=== PATIENT | male | born 1940 | race Caucasian/White ===

== ENCOUNTER → 2023-03-13 09:59 | Outpatient (CLI) | payer MEDICARE, SELFPAY ==
[2023-03-13 11:19] LABS: BUN Creatinine Ratio 15.9 (6-22); Blood Urea Nitrogen 25 mg/dL (9-20); Calcium 9.4 mg/dL (8.4-10.2); Carbon Dioxide 25 mmol/L (22-32); Chloride 104 mmol/L (98-107); Estimated Glomerular Filt Rate 43 mL/min (>60); Glucose 95 mg/dL (80-110); HEMOLYSIS < 15 (0-50); Sodium 138 mmol/L (137-145)
== END ==
PROVIDERS: PCP Internal Medicine; Referring Provider Internal Medicine; Visit Provider Internal Medicine
DX: I50.9 Heart failure, unspecified (principal)
CPT/HCPCS: 36415; 80048

== ENCOUNTER → 2023-04-27 09:01 | Outpatient (CLI) | payer MEDICARE, SELFPAY ==
--- NOTE | 2023-04-27 09:02 | DI.RAD.S_ITS ---
PROCEDURE: XR THORACIC SPINE 3V INDICATIONS: RIB PAIN TECHNIQUE: 3 views of the thoracic spine were acquired. COMPARISON: None. FINDINGS: Bones: No fractures or dislocations. No suspicious bony lesions. 12 pairs of ribs are noted, and appear intact where visualized. Soft tissues: No paravertebral stripe thickening. Atherosclerotic vascular calcification noted in the aortic arch. IMPRESSION: Unremarkable thoracic spine radiographs Approved by: Adán Maki M.D. on 04/27/2023 at 9:33
--- NOTE | 2023-04-27 09:02 | DI.RAD.S_ITS ---
PROCEDURE: XR LUMBAR SPINE MIN 4V INDICATIONS: BACK PAIN TECHNIQUE: 5 views of the lumbar spine were acquired, including bilateral oblique views. COMPARISON: None. FINDINGS: Bones: 5 nonrib-bearing vertebrae are present. There is normal bony alignment. No vertebral body compression fractures. No suspicious bony lesions. Disc space narrowing and hypertrophic facet joints present throughout the exam particularly lower lumbar spine. Mild thoracolumbar convex left scoliosis Soft tissues: Overlying bowel gas pattern is normal. No suspicious soft tissue calcifications. Atherosclerotic calcification in the abdominal aorta noted without evidence of aneurysm. Oblique images: No pars defects. IMPRESSION: Multilevel degenerative disc disease and arthropathy, particularly lower lumbar spine. Degenerative thoracolumbar levoscoliosis Approved by: Adán Maki M.D. on 04/27/2023 at 9:46
== END ==
PROVIDERS: PCP Internal Medicine; Referring Provider Physical Medicine & Rehabilitation; Visit Provider Physical Medicine & Rehabilitation
DX: R07.81 Pleurodynia (principal); M51.36 Other intervertebral disc degeneration, lumbar region; M47.816 Spondylosis without myelopathy or radiculopathy, lumbar region; M48.062 Spinal stenosis, lumbar region with neurogenic claudication; S32.050S Wedge compression fracture of fifth lumbar vertebra, sequela; M41.9 Scoliosis, unspecified; M54.9 Dorsalgia, unspecified
CPT/HCPCS: 72072; 72110; 99214

== ENCOUNTER 2023-05-15 10:16 | Outpatient (CLI) | payer MEDICARE, SELFPAY ==
[2023-05-15] VITALS (8 sets, daily range): BP systolic 121–138; BP diastolic 60–75; PULSE 71–85; RESP 15–17; TEMP 36.3; O2SAT 95–99
--- NOTE | 2023-05-15 10:20 | DI.RAD.S_ITS ---
PROCEDURE: PAIN L INTERLAMINAR/CAUDAL INJ INDICATIONS: SPONDYLOSIS COMPARISON: [facility], CR, XR LUMBAR SPINE MIN 4V, 04/27/2023, 9:08. FINDINGS: Fluoroscopic spot filming was performed to verify placement of a spinal needle at the L4-L5 level, as labeled on the films. Appropriate location of the needle tip was confirmed by injection of iodinated contrast. IMPRESSION: Intraprocedural examination within normal limits. Dictated by: Drew Kirby M.D. on 05/15/2023 at 12:06 Approved by: Drew Kirby M.D. on 05/15/2023 at 12:06
[2023-05-15] MEDS: MIDAZOLAM 2 MG/2 ML VIAL IV (11:08)
[2023-05-15] MEDS: BETAMETHASONE 30 MG/5 ML MDV 6 MG INJ (11:10)
[2023-05-15] MEDS: DEXAMETHASONE 10 MG/ML VIAL INJ (11:10)
[2023-05-15] MEDS: BUPIVACAINE 0.25% (PF) VIAL 2 ML INJ (11:10)
[2023-05-15] MEDS: iopamidoL 15 ML VIAL 3 ML INJ (11:10)
--- NOTE | 2023-05-15 11:28 | P.PCN_ITS ---
Date/Time/Diagnoses Date of procedure: 05/15/23 Time of procedure: 11:28 Pre-procedure diagnosis: 1. HNP WITH RADICULAR FEATURES, 2. MULTILEVEL CENTRAL STENOSIS, Post-procedure diagnosis: same Procedure Notes Procedure: 1. FLUOROSCOPICALLY GUIDED CONTRAST CONTROLLED INTERLAMINAR EPIDURAL STEROID INJECTION - L5/S1 Indications: Meir is referred by Dr. Briones for treatment of Bilateral Foraminal Stenosis L>R LE symptoms. Physician: Crow Jennings Total Fluoroscopy time (seconds): 5 Total sedation minutes: 7 Complications: none Procedure in detail & Post-procedure care: FINDINGS Multilevel Central Spinal Stenosis with Nerve Root Compression DESCRIPTION OF PROCEDURE Fluoroscopically guided, contrast-controlled L5/S1 translaminar epidural steroid injection. Following review of allergy and review of potential side effects and complications, including, but not necessarily limited to, infection, allergic reaction, local tissue breakdown, temporary as well as permanent nerve injury, paralysis, stroke and possible , the patient indicated that the patient understood and agreed to proceed. An informed consent document was signed by the patient, witnessed by a nurse, and placed in the patient's chart. Additionally, other treatment options including modalities, medications, and physical therapy were reviewed with the patient. After review of previous anaesthesic history and IV conscious sedation the patient was deemed safe to proceed with today?s procedure with IV conscious sedation as ASA class II designation. Safety time-out was performed to confirm patient ID, procedure to be performed and site of procedure. IV sedation was accomplished with a combination of 1mg of Versed administered by the RN after DO order, titrated to patient comfort during the course of the procedure while the patient remained responsive to all verbal commands. In the prone position, following sterile prep and drape of the lumbar region, the L5/S1 translaminar space was identified fluoroscopically. The skin was anesthetized via a 25-gauge, 1.5-inch needle with 1% lidocaine solution. At this point, a 22-gauge short bevel spinal needle was atraumatically introduced and advanced under fluoroscopic guidance into the region of the L5/S1 translaminar space. Depth was confirmed on lateral view. Radiological data, including multiple fluoroscopic views of the lumbar spine, reveal a spinal needle at the L5/S1 translaminar space. Lateral views then show placement of the needle in the epidural space. Subsequent views show contrast material flowing superiorly and inferiorly in the epidural space. No vascular or intrathecal uptake is observed. At this point, using loss of resistance technique with saline and air, the epidural space was entered. This was confirmed following negative aspiration with injection of approximately 1.5cc of Isovue 200, showing excellent epidural flow without vascular or intrathecal uptake. At this point, 1 cc of 1% lidocai ne solution combined with 2cc or 10mg of dexamethasone and 6mg of betamethasone was injected without incident. The patent tolerated the procedure without signs of symptoms of complications prior to transfer to the recovery area for further monitoring. The patient was then transferred to the recovery area where they were observed for an appropriate period of time after the injection. The patient reported a VAS score of 6 prior to the procedure and a post-procedure VAS of 0. POST OP INSTRUCTIONS The patient was provided a Pain Log to continue to record their response to the target-specific procedure prior to follow-up visit with their referring physician. Additionally, specific post-injection care instructions and a contact number to our office were provided if concerns arise regarding possible complications associated with the procedure are suspected.
== END 2023-05-15 11:42 | disposition home or self-care (01) ==
PROVIDERS: PCP Internal Medicine; Referring Provider Physical Medicine & Rehabilitation; Visit Provider Physical Medicine & Rehabilitation
DX: M51.17 Intervertebral disc disorders with radiculopathy, lumbosacral region (principal); M48.07 Spinal stenosis, lumbosacral region
CPT/HCPCS: 62323; J0702; J1100; J2250; J3490

== ENCOUNTER 2023-05-28 13:53 | Emergency (ER) | payer MEDICARE, SELFPAY ==
[2023-05-28] VITALS (7 sets, daily range): BP systolic 102–128; BP diastolic 57–60; PULSE 67–81; RESP 15–19; TEMP 36.5; O2SAT 93–98; BMI 21.8
[2023-05-28] MEDS: ONDANSETRON 4 MG/2 ML INJ IV (14:23)
[2023-05-28 14:39] LABS: Add Manual Diff / Slide Review NO; Basophils Absolute Auto 0 /uL (0-100); Basophils Percent Auto 0.3 % (0-2); Eosinophils Absolute Auto 0 /uL (0-450); Eosinophils Percent Auto 0.5 % (2-4); Hematocrit 43.7 % (41-53); Hemoglobin 14.8 g/dL (13.5-17.5); Lymphocytes Absolute Auto 1200 /uL (1100-4500); Lymphocytes Percent Auto 22.1 % (25-40); Mean Corpuscular HGB Conc 33.8 % (30-36); Mean Corpuscular Hemoglobin 31.5 PG (26-34); Mean Corpuscular Volume 93.2 fL (80-100); Monocytes Absolute Auto 1000 /uL (0-900); Monocytes Percent Auto 18.8 % (3-14); Neutrophils Absolute Auto 3100 /uL (1500-7000); Neutrophils Percent Auto 58.3 % (50-75); Platelet Count 208 X10^3/uL (150-400); Red Blood Cell Count 4.69 X10^6/uL (4.5-5.9); Red Cell Distribution Width 13.6 % (11.6-14.8); White Blood Cell Count 5.4 X10^3/uL (4.5-11.0)
[2023-05-28 14:52] LABS: COVID19 -Nasal RAPID Negative (Negative)
[2023-05-28 15:02] LABS: Alanine Aminotransferase 21 IU/L (<50); Albumin 3.5 g/dL (3.5-5.0); Albumin Globulin Ratio 1.2 (1.0-2.8); Alkaline Phosphatase 73 U/L (38-126); Aspartate Aminotransferase 20 IU/L (17-59); Bilirubin Total 0.4 mg/dL (0.2-1.3); Blood Urea Nitrogen 31 mg/dL (9-20); Calcium 8.5 mg/dL (8.4-10.2); Carbon Dioxide 20 mmol/L (22-32); Chloride 107 mmol/L (98-107); Creatine Kinase 49 U/L (55-170); Estimated Glomerular Filt Rate 51 mL/min (>60); Glucose 230 mg/dL (80-110); HEMOLYSIS 17 (0-50); Lipase 32 U/L (23-300); Potassium 3.8 mmol/L (3.4-5.1); Sodium 136 mmol/L (137-145); Total Protein 6.5 g/dL (6.3-8.2)
[2023-05-28 15:13] LABS: Troponin I 0.018 ng/mL (0.01-0.034)
[2023-05-28] MEDS: SODIUM CHLORIDE 0.9% 1,000 ML 1000 ML IV (17:41)
--- NOTE | 2023-05-28 18:55 | ED_ITS ---
HPI - Nausea/Vomiting/Diarrhea General Chief complaint: Nausea/Vomiting/Diarrhea Stated complaint: states sick/D/V Time Seen by Provider: 05/28/23 18:05 Source: patient Mode of arrival: Ambulatory History of Present Illness HPI Narrative: 83-year-old gentleman with diabetes, hypertension, history of bladder cancer, COPD, chronic kidney disease who notes that he had a flu shot on the . On the he began having diarrhea which continued for 48 hours and resolved after a dose of Imodium. He then began having vomiting which was continued for 48 hours any comes in for further evaluation. He does not describe fevers. He describes abdominal cramping associated with the diarrhea but no specific abdominal pain otherwise. He has not had any dysuria or flank pain. No chest pain palpitations or dyspnea. There has been no blood in either the stool or emesis. Related Data Home Medications Medication Instructions Recorded Confirmed CALCIUM CARBONATE/VITAMIN D3 250 mg PO BID ##0 07/30/08 04/27/23 (Oyster Shell Calcium-Vit D Tab) FUROSEMIDE (Lasix) 20 mg PO ##0 07/30/08 04/27/23 Fluoxetine Hydrochloride (Prozac) 40 mg PO ##0 07/30/08 04/27/23 INSULIN HUMAN 70/30 10ML (Humulin 0 units SQ * [place] DOSE/FREQUENCY ##0 07/30/08 04/27/23 70-30 Vial) LISINOPRIL (Zestril / Prinivil) 20 mg PO Q DAY ##0 11/20/08 04/27/23 omeprazole 20 mg capsule,delayed 20 mg PO QDAY ##0 01/20/13 04/27/23 release Previous Rx's Medication Instructions Recorded diazepam 10 mg tablet (Valium) 10 mg PO .COMPLEX PRN 1-2 prior to 04/27/23 MRI and for possible steroid flare #10 tabs ondansetron 4 mg disintegrating 4 mg PO Q8H PRN nausea and 05/28/23 tablet vomiting #14 tabs Allergies Allergy/AdvReac Type Severity Reaction Status Date / Time carvedilol [CARVEDILOL] Allergy Unknown Verified 05/28/23 14:14 metformin [METFORMIN] Allergy Unknown Verified 05/28/23 14:14 Review of Systems Review of Systems Narrative: Pertinent positive and negative findings as per HPI Patient History Medical History Compression fracture of L5 vertebra Lumbar stenosis with neurogenic claudication Facet arthropathy, lumbar Scoliosis Surgical History History of prostate surgery Family History Father History of heart attack Family/Other Diabetes mellitus Social History Smoking Status: Never smoker Smoking Status: Never smoker alcohol intake frequency: 0-2 drinks per day Substance Use Type: does not use Exam Initial Vital Signs Initial Vital Signs: Vital Signs Temperature 97.7 F 05/28/23 14:09 Pulse Rate 76 05/28/23 14:09 Respiratory Rate 18 05/28/23 14:09 Blood Pressure 102/57 L 05/28/23 14:09 Pulse Oximetry 98 05/28/23 14:09 Oxygen Delivery Method Room Air 05/28/23 14:09 General: Older-appearing gentleman in no acute distress. Able to give a complete and coherent history. Well-nourished well-developed HEENT: Moist mucous membranes, normal sclera with reactive pupils, Respiratory: Lungs are clear to auscultation, no wheezing no rales no rhonchi. Full and symmetrical air movement Cardiac: Regular rate and rhythm no murmurs no bruits Abdomen: Soft, nontender, no rebound or guarding, not a surgical abdomen. No flank pain. Skin: Thin but otherwise Warm and dry, no rashes Neurologic: Grossly neurologically intact with no obvious asymmetries or abnormalities Extremities: No trauma, well perfused Psych: Cooperative, appropriate insight and affect Course Orders Ordered: ED Orders 05/28/23 14:14 EKG-12 Lead Stat 05/28/23 14:26 COVID19 -Nasal RAPID Stat Complete Blood Count AUTO DIFF Stat Comprehensive Metabolic Panel Stat Lipase Stat Troponin & CK Cardiac Panel Stat Ondansetron HCl (Ondansetron 4 Mg/2 Ml Inj) 4 mg IV NOW PRN PRN Reason: Nausea And Vomiting Last Admin: 05/28/23 14:23 Dose: 4 mg Documented By: JG Discontinued Medications Sodium Chloride (Normal Saline 0.9%) 1,000 mls @ 1,000 mls/hr IV BOLUS ONE Stop: 05/28/23 18:21 Last Admin: 05/28/23 17:41 Dose: 1,000 mls/hr Documented By: TEZ Vital Signs Vital signs: Vital Signs - 8 hr 05/28/23 14:09 05/28/23 17:39 05/28/23 17:40 Temperature 97.7 F Pulse Rate 76 81 Respiratory Rate 18 Blood Pressure 102/57 L 128/60 Pulse Oximetry 98 96 Oxygen Delivery Method Room Air 05/28/23 17:40 05/28/23 18:00 Temperature Pulse Rate 75 67 Respiratory Rate 15 15 Blood Pressure Pulse Oximetry 98 95 Oxygen Delivery Method MDM - Nausea/Vomiting/Diarrhea Lab Data 05/28/23 14:26 05/28/23 14:26 Labs: Lab Results 05/28/23 Range/Units 14:26 WBC 5.4 (4.5-11.0) X10^3/uL RBC 4.69 (4.5-5.9) X10^6/uL Hgb 14.8 (13.5-17.5) g/dL Hct 43.7 (41-53) % MCV 93.2 (80-100) fL MCH 31.5 (26-34) PG MCHC 33.8 (30-36) % RDW 13.6 (11.6-14.8) % Plt Count 208 (150-400) X10^3/uL Neut % (Auto) 58.3 (50-75) % Lymph % (Auto) 22.1 L (25-40) % [place] % (Auto) 18.8 H (3-14) % Eos % (Auto) 0.5 L (2-4) % Baso % (Auto) 0.3 (0-2) % Neut # (Auto) 3100 (3176-4763) /uL Lymph # (Auto) 1200 (4752-4975) /uL [place] # (Auto) 1000 H (0-900) /uL Eos # (Auto) 0 (0-450) /uL Baso # (Auto) 0 (0-100) /uL Sodium 136 L (137-145) mmol/L Potassium 3.8 (3.4-5.1) mmol/L Chloride 107 (98-107) mmol/L Carbon Dioxide 20 L (22-32) mmol/L BUN 31 H (9-20) mg/dL Creatinine 1.35 H (0.66-1.25) mg/dL Estimated GFR 51 L (>60) mL/min BUN/Creatinine Ratio 23.0 H (6-22) Glucose 230 H (80-110) mg/dL Calcium 8.5 (8.4-10.2) mg/dL Total Bilirubin 0.4 (0.2-1.3) mg/dL AST 20 (17-59) IU/L ALT 21 (<50) IU/L Alkaline Phosphatase 73 (38-126) U/L Total Creatine Kinase 49 L (55-170) U/L Troponin I 0.018 (0.01-0.034) ng/mL Total Protein 6.5 (6.3-8.2) g/dL Albumin 3.5 (3.5-5.0) g/dL Globulin 3.0 (1.7-4.1) g/dL Albumin/Globulin Ratio 1.2 (1.0-2.8) Lipase 32 (23-300) U/L SARS-CoV-2 (PCR) Negative (Negative) MDM Narrative Medical decision making narrative: CC: Nausea vomiting and diarrhea for the past 4 days Complicating co-morbidities: Diabetes hypertension Data collected from: patient, Social determinants of health that may influence the patients condition: [place] Medical records reviewed: Notes from physiatry are reviewed from May 15. Notes from [facility] your reviewed. It appears that much of his care is from the [place] and minimal medical records are available Differential considered: Gastroenteritis, bowel obstruction, colitis, diverticulitis, Exam documented above, pertinent findings include: Lab Test results independently reviewed as above. Pertinent findings: CBC shows no significant leukocytosis nor anemia Chemistries show creatinine at 1.3 which appears to be close to his baseline. Slightly elevated BUN at 31. Remainder of electrolytes are relatively unremarkable. Sugar is 230. Troponin is undetectable Lipase is reassuring Rapid COVID screening today is negative Urine dip showed nitrites only will be sent for culture Treatments: 1 L of fluid, parenteral ondansetron Discussion: 83-year-old gentleman with 2 days of diarrhea followed by 2 days of vomiting feeling significantly improved after a L of fluid. Reassuring blood work with no evidence of significant infection, renal failure, electrolyte abnormalities, bowel obstruction or DKA/HHS.. Exam is entirely benign with an absolutely nonsurgical abdomen. He is had no fevers. At this time is hemodynamically stable, feeling better able to tolerate food and liquids. I believe he is safe for discharge home. Most likely explanation at this point is a viral syndrome that is not COVID. Reviewed all findings with the patient and his . Questions were answered. He will be discharged with Zofran. Discharge Plan Departure Patient Disposition: Home Clinical Impression: Nausea vomiting and diarrhea Instructions: DI for Viral Gastroenteritis -- Adult, DI for Nausea -- Adult Activity Restrictions/Additional Instructions: Thank you for coming in today Your blood work is actually quite reassuring. There is no evidence of overwhelming infection, significant diabetic abnormalities, electrolyte problems or worsening kidney function. Your COVID screen was negative. Your urine test had 1 minor abnormality that did not look like an acute infection with the urine has been sent down to be cultured, you will be contacted if the culture returns positive I believe it is safe for you to go home. I am giving you some Zofran, nausea medicine, to have at home so you again have difficulties with vomiting. Given the number of patients we have recently been seeing with similar symptoms I strongly suspect that this is a viral gastroenteritis. Your exam is quite reassuring and I do not suspect any significant abdominal abnormalities would require additional imaging or surgical consultation. An additional prescription for Zofran was electronically transmitted to [facility] mail order. If you find that you are getting worse or develop any new symptoms, please feel free to return to the emergency department for further evaluation. Prescriptions: New ondansetron 4 mg tablet,disintegrating 4 mg PO Q8H PRN (Reason: nausea and vomiting) Qty: 14 0RF No Action INSULIN HUMAN 70/30 10ML (Humulin 70-30 Vial) 0 units SQ * [place] DOSE/FREQUENCY Qty: 0 Fluoxetine Hydrochloride (Prozac) 40 mg PO Qty: 0 CALCIUM CARBONATE/VITAMIN D3 (Oyster Shell Calcium-Vit D Tab) 250 mg PO BID Qty: 0 FUROSEMIDE (Lasix) 20 mg PO Qty: 0 LISINOPRIL (Zestril / Prinivil) 20 mg PO Q DAY Qty: 0 omeprazole 20 MG capsule,delayed release(DR/EC) 20 mg PO QDAY Qty: 0 diazepam [Valium] 10 mg tablet 10 mg PO .COMPLEX MDD 3 tabs PRN (Reason: 1-2 prior to MRI and for possible steroid flare) Qty: 10 0RF Rx Instructions: 10 mg PO PRN; Referrals: Esvin Briones MD [Primary Care Provider] - Stand Alone Forms: Patient Portal/API
[2023-05-28 19:27] LABS: Appearance Urine UA CLEAR; Bilirubin Urine UA NEGATIVE (NEGATIVE); Color Urine UA YELLOW; Glucose Urine UA 3+ g/dL (Negative); Ketones Urine UA NEGATIVE (NEGATIVE); Leukocyte Esterase Urine UA TRACE (NEGATIVE); Nitrite Urine UA POSITIVE (Negative); Occult Blood Urine UA NEGATIVE (Negative); Protein Urine UA 1+ (Negative); Specific Gravity Urine UA 1.015 (1.000-1.035); Urobilinogen Urine UA 0.2 E.U./dL (0.2); pH Urine UA 5.5 (4.5-8.0)
[2023-05-28] MEDS: ONDANSETRON 4 MG ODT PREPACK 1 BOTTLE MISC (19:34)
[2023-05-28 19:44] LABS: Bacteria Urine Many (>30); Culture Indicated Urine Specimen Cultured; RBC Urine None Seen (0-5/HPF); Squamous Epithelial Cell Urine 0-1 /HPF (0-5/HPF); WBC Urine 10-30/HPF (0-5/HPF)
== END 2023-05-28 19:40 | disposition home or self-care (01) ==
PROVIDERS: Emergency Medicine; Emergency Provider Emergency Medicine; PCP Internal Medicine
DX: R11.2 Nausea with vomiting, unspecified (principal); R19.7 Diarrhea, unspecified; R10.9 Unspecified abdominal pain; Z20.822 Contact with and (suspected) exposure to COVID-19
CPT/HCPCS: 36415; 80053; 81001; 81003; 82550; 83690; 84484; 85025; 87077; 87086; 87186; 87635; 93005; 93010; 96361; 96374; 99284; C9803; J2405

== ENCOUNTER 2023-08-21 09:05 | Outpatient (CLI) | payer MEDICARE, SELFPAY ==
[2023-08-21] VITALS (8 sets, daily range): BP systolic 123–146; BP diastolic 59–78; PULSE 79–86; RESP 11–20; TEMP 35.7; O2SAT 97–100
--- NOTE | 2023-08-21 09:15 | DI.RAD.S_ITS ---
PROCEDURE: PAIN L/S FACET INJ/BLK 1ST ELI INDICATIONS: Bilateral L4-L5 and S1 medial branch blocks LA COMPARISON: None. FINDINGS: Fluoroscopic spot filming was performed to verify placement of spinal needles at the L4, L5 and S1 level(s), as labeled on the films. Appropriate location(s) of the needle tip(s) was confirmed by injection of iodinated contrast. IMPRESSION: Fluoroscopic guidance utilized for medial branch blocks. Dictated by: Kenny Quintana M.D. on 08/21/2023 at 12:27 Approved by: Kenny Quintana M.D. on 08/21/2023 at 12:27
[2023-08-21] MEDS: MIDAZOLAM 2 MG/2 ML VIAL 1 MG IV (09:39)
[2023-08-21] MEDS: iopamidoL 15 ML VIAL 3 ML INJ (09:45)
[2023-08-21] MEDS: LIDOCAINE 1% 20 ML 5 ML INJ (09:45)
[2023-08-21] MEDS: BUPIVACAINE 0.5% (PF) 10 ML VIAL 5 ML INJ (09:46)
--- NOTE | 2023-08-21 09:58 | PM.PROC.IR.1 ---
Date/Time/Diagnoses Date of procedure: 09/19/23 Time of procedure: 09:59 Pre-procedure diagnosis: 1. FACET ARTHROPATHY Post-procedure diagnosis: same Procedure Notes Procedure: 1. BILATERAL- L4, L5 and S1 DIAGNOSTIC MB BLOCKS with LA Anesthetic Indications: Meir is referred by Dr. Briones for treatment of Bilateral Axial LBP. Physician: Crow Jennings Total Fluoroscopy time (seconds): 14 Total sedation minutes: 16 Complications: none Procedure in detail & Post-procedure care: DESCRIPTION OF PROCEDURE Fluoroscopically guided, contrast-controlled bilateral L4, L5 and S1 medial branch blocks with 0.5cc of 0.5% Marcaine. Following review of allergy and review of potential side effects and complications, including, but not necessarily limited to, infection, allergic reaction, local tissue breakdown, nerve injury, paralysis, stroke and possible , the patient indicated that the patient understood and agreed to proceed. An informed consent document was signed by the patient, witnessed by a nurse, and placed in the patient's chart. After review of previous anaesthesic history and IV conscious sedation the patient was deemed safe to proceed with today's procedure with IV conscious sedation as ASA class II designation. Safety time-out was performed to confirm patient ID, procedure to be performed and site of procedure. IV sedation was accomplished with a combination of 1mg of Versed was administered by the RN after DO order, titrated to patient comfort during the course of the procedure while the patient remained responsive to all verbal commands In the prone position, following sterile prep and drape of the lumbar region, the right L4, L5 and S1 anatomical location of the medial branch of the dorsal ramus was identified fluoroscopically. Subsequently an anesthetic skin wheal using 1% lidocaine solution was initiated at each of the anatomical spots. Subsequently then a 22-gauge 3.5-inch spinal needle was atraumatically introduced and advanced under fluoroscopic guidance at each of the corresponding sites at the right L4, L5 and S1 MB. After negative aspiration, 0.2cc of Isovue 200 was injected, confirming placement without vascular or intrathecal uptake. Subsequently then 0.5cc of 0.5% Marcaine solution was injected at each of the corresponding sites at the right L4, L5 and S1 medial branch locations. The identical procedure was replicated on the left. The patient tolerated the procedure well without signs or symptoms of complications prior to transfer to the recovery area continued monitoring without incident. Post-procedure, the patient was monitored initiating provocative activities to measure the amount of relief from block of the facetogenic pain. The patient reported a VAS of 7 prior to the procedure and a post-procedure VAS of 1. It has been a pleasure to assist in the diagnostic and therapeutic care of your patient. POST OP INSTRUCTIONS The patient was provided with a Pain Log to complete over the next several hours and subsequent days prior to the patient's follow up with the ordering physician. If the patient has women's studies lecturer relief to the solution applied, then they may be a candidate for medial branch rhizotomy. The patient is aware, was provided, once again, with a Pain Log and will follow up with the referring physician for review and clinical correlation
== END 2023-08-21 10:15 | disposition home or self-care (01) ==
PROVIDERS: PCP Internal Medicine; Referring Provider Physical Medicine & Rehabilitation; Visit Provider Physical Medicine & Rehabilitation
DX: M47.816 Spondylosis without myelopathy or radiculopathy, lumbar region (principal); M47.817 Spondylosis without myelopathy or radiculopathy, lumbosacral region
CPT/HCPCS: 64493; 64494; 99152; J2250

== ENCOUNTER 2023-11-20 13:46 | Outpatient (CLI) | payer MEDICARE, SELFPAY ==
[2023-11-20] VITALS (10 sets, daily range): BP systolic 142–166; BP diastolic 68–85; PULSE 70–83; RESP 14–20; TEMP 36.2; O2SAT 96–100
--- NOTE | 2023-11-20 14:30 | DI.RAD.S_ITS ---
PROCEDURE: PAIN L/S FACET INJ/BLK 1ST ELI INDICATIONS: FACET ARTHOPATHY COMPARISON: [facility], , PAIN L/S FACET INJ/BLK 1ST ELI, 08/21/2023, 10:44. FINDINGS: Fluoroscopic spot filming was performed to verify placement of spinal needles at the L4-5 and S1 level(s), as labeled on the films. Appropriate location(s) of the needle tip(s) was confirmed by injection of iodinated contrast. IMPRESSION: Fluoroscopically guided injections at L4-5 and S1. Dictated by: aMrisol Rodriguez M.D. on 11/20/2023 at 16:40 Approved by: Marisol Rodriguez M.D. on 11/20/2023 at 16:41
[2023-11-20] MEDS: MIDAZOLAM 2 MG/2 ML VIAL 1 MG IV ×2 (14:48→15:00)
[2023-11-20] MEDS: iopamidoL 15 ML VIAL 3 ML INJ (14:53)
[2023-11-20] MEDS: LIDOCAINE 1% 20 ML 5 ML INJ (14:53)
[2023-11-20] MEDS: LIDOCAINE 2% INJ SDV 5ML 10 ML INJ (14:54)
--- NOTE | 2023-11-20 15:08 | P.PCN_ITS ---
Date/Time/Diagnoses Date of procedure: 11/20/23 Time of procedure: 15:08 Pre-procedure diagnosis: 1. FACET ARTHROPATHY Post-procedure diagnosis: same Procedure Notes Procedure: 1. BILATERAL- L4, L5 and S1 DIAGNOSTIC MB BLOCKS with SA Anesthetic Indications: Meir is referred by Dr. Briones for treatment of Bilateral Axial LBP. Physician: Crow Jennings Total Fluoroscopy time (seconds): 16 Total sedation minutes: 14 Complications: none Procedure in detail & Post-procedure care: DESCRIPTION OF PROCEDURE Fluoroscopically guided, contrast-controlled bilateral L4, L5 and S1 medial branch blocks with 0.5cc of 2% Lidocaine. Following review of allergy and review of potential side effects and complications, including, but not necessarily limited to, infection, allergic reaction, local tissue breakdown, nerve injury, paralysis, stroke and possible , the patient indicated that the patient understood and agreed to proceed. An informed consent document was signed by the patient, witnessed by a nurse, and placed in the patient's chart. After review of previous anaesthesic history and IV conscious sedation the patient was deemed safe to proceed with today's procedure with IV conscious sedation as ASA class II designation. Safety time-out was performed to confirm patient ID, procedure to be performed and site of procedure. IV sedation was accomplished with a combination of 3mg of Versed was administered by the RN after DO order, titrated to patient comfort during the course of the procedure while the patient remained responsive to all verbal commands In the prone position, following sterile prep and drape of the lumbar region, the right L4, L5 and S1 anatomical location of the medial branch of the dorsal ramus was identified fluoroscopically. Subsequently an anesthetic skin wheal using 1% lidocaine solution was initiated at each of the anatomical spots. Subsequently then a 22-gauge 3.5-inch spinal needle was atraumatically introduced and advanced under fluoroscopic guidance at each of the corresponding sites at the right L4, L5 and S1 MB. After negative aspiration, 0.2cc of Isovue 200 was injected, confirming placement without vascular or intrathecal uptake. Subsequently then 0.5cc of 2% Lidocaine solution was injected at each of the corresponding sites at the right L4, L5 and S1 medial branch locations. The identical procedure was replicated on the left. The patient tolerated the procedure well without signs or symptoms of complications prior to transfer to the recovery area continued monitoring without incident. Post-procedure, the patient was monitored initiating provocative activities to measure the amount of relief from block of the facetogenic pain. The patient reported a VAS of 7 prior to the procedure and a post-procedure VAS of 1. It has been a pleasure to assist in the diagnostic and therapeutic care of your patient. POST OP INSTRUCTIONS The patient was provided with a Pain Log to complete over the next several hours and subsequent days prior to the patient's follow up with the ordering physician. If the patient has railroad track inspector relief to the solution applied, then they may be a candidate for medial branch rhizotomy. The patient is aware, was provided, once again, with a Pain Log and will follow up with the referring physician for review and clinical correlation
== END 2023-11-20 15:35 | disposition home or self-care (01) ==
PROVIDERS: PCP Internal Medicine; Referring Provider Physical Medicine & Rehabilitation; Visit Provider Physical Medicine & Rehabilitation
DX: M47.816 Spondylosis without myelopathy or radiculopathy, lumbar region (principal); M47.817 Spondylosis without myelopathy or radiculopathy, lumbosacral region
CPT/HCPCS: 64493; 64494; 99152; J2250

== ENCOUNTER 2023-12-07 11:22 | Emergency (ER) | payer MEDICARE, SELFPAY ==
[2023-12-07 11:30] VITALS: BP 170/76; PULSE 71; RESP 16; TEMP 36.3; O2SAT 96; BMI 23.1
--- NOTE | 2023-12-07 11:48 | ED.BACK ---
HPI - Back Pain/Injury <David Clay PA-C - Last Filed: 12/07/23 13:00> General Chief Complaint: Back Pain/Injury Stated Complaint: per pt broke his back Time Seen by Provider: 12/07/23 11:48 Source: patient History of Present Illness HPI Narrative: This is a 83-year-old male presents emergency department due to acute onset lumbar pain. States he has a history of lumbar fracture which did not require surgery about 5 years ago. States that 2 days ago he began developing new lumbar pain. Denies any trauma or lifting. States that he is having hematuria states that this is chronic as he has a renal mass which was followed by urology. Denies any saddle paresthesias or urinary or bowel incontinence. Pain begins in his midline lumbar spine and radiates bilaterally to his lumbar paraspinals. Denies any dysuria or urinary frequency. Related Data Home Medications Medication Instructions Recorded Confirmed CALCIUM CARBONATE/VITAMIN D3 250 mg PO BID ##0 07/30/08 12/03/23 (Oyster Shell Calcium-Vit D Tab) FUROSEMIDE (Lasix) 20 mg PO ##0 07/30/08 12/03/23 Fluoxetine Hydrochloride (Prozac) 40 mg PO ##0 07/30/08 12/03/23 INSULIN HUMAN 70/30 10ML (Humulin 0 units SQ * UK DOSE/FREQUENCY ##0 07/30/08 12/03/23 70-30 Vial) LISINOPRIL (Zestril / Prinivil) 20 mg PO Q DAY ##0 11/20/08 12/03/23 omeprazole 20 mg capsule,delayed 20 mg PO QDAY ##0 01/20/13 12/03/23 release Previous Rx's Medication Instructions Recorded ondansetron 4 mg disintegrating 4 mg PO Q8H PRN nausea and 05/28/23 tablet vomiting #14 tabs meloxicam 15 mg tablet 15 mg PO DAILY #30 tabs 10/15/23 diazepam 10 mg tablet (Valium) 10 mg PO .COMPLEX PRN 1-2 prior to 12/03/23 MRI and for possible steroid flare #10 tabs tramadol 50 mg tablet 50 mg PO TID PRN pain #30 tabs 12/03/23 lidocaine 4 % topical patch 1 patch topical BID PRN pain #30 ea 12/07/23 Allergies Allergy/AdvReac Type Severity Reaction Status Date / Time carvedilol [CARVEDILOL] Allergy Unknown Verified 12/07/23 11:36 metformin [METFORMIN] Allergy Unknown Verified 12/07/23 11:36 Review of Systems <David Clay PA-C - Last Filed: 12/07/23 13:00> Review of Systems Narrative: GENERAL: Denies chills, fatigue, malaise, fever, sweats. HEENT: Denies sinus pain, ear pain, sore throat, difficulty swallowing, dizziness. RESPIRATORY: Denies dyspnea, cough, wheezing, hemoptysis, sputum. CARDIOVASCULAR: Denies chest pain, palpitations, orthopnea, edema, GASTROINTESTINAL: Denies nausea, vomiting, abdominal pain, diarrhea, constipation, melena. : Denies dysuria, frequency, incontinence, , urinary retention. Reports hematuria MUSCULOSKELETAL: Reports lower back pain SKIN: Denies rash, skin lesions, or other NEUROLOGIC: Denies weakness, headache, numbness, change in speech, confusion, seizures, incoordination. PSYCHIATRIC: No concerning psychosocial issues. 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 HEAD: Atraumatic. Normocephalic. EYES: Pupils equal round and reactive. Extraocular motions intact. No scleral icterus. No injection or drainage. ENT: Nose without bleeding, purulent drainage. Throat without erythema, tonsillar hypertrophy or exudate. Airway patent. NECK: Trachea midline. Non tender EXTREMITIES: No edema or joint tenderness. NEURO: AOx3. SKIN: No rash or erythema of visible areas Back: Tenderness to palpation to the midline lumbar spine as well as lumbar paraspinals Initial Vital Signs Initial Vital Signs: Vital Signs Temperature 97.4 F L 12/07/23 11:30 Pulse Rate 71 12/07/23 11:30 Respiratory Rate 16 12/07/23 11:30 Blood Pressure 170/76 H 12/07/23 11:30 Pulse Oximetry 96 12/07/23 11:30 Oxygen Delivery Method Room Air 12/07/23 11:30 <DO Veronica Vides Last Filed: 12/07/23 13:01> Initial Vital Signs Initial Vital Signs: Vital Signs Temperature 97.4 F L 12/07/23 11:30 Pulse Rate 71 12/07/23 11:30 Respiratory Rate 16 12/07/23 11:30 Blood Pressure 170/76 H 12/07/23 11:30 Pulse Oximetry 96 12/07/23 11:30 Oxygen Delivery Method Room Air 12/07/23 11:30 Course <David Clay PA-C - Last Filed: 12/07/23 13:00> Orders Ordered: ED Orders 12/07/23 11:50 Urinalysis and Microscopic Stat Urine Culture Stat 12/07/23 11:56 XR lumbar spine 2-3V Stat Vital Signs Vital signs: Vital Signs - 8 hr 12/07/23 11:30 Temperature 97.4 F L Pulse Rate 71 Respiratory Rate 16 Blood Pressure 170/76 H Pulse Oximetry 96 Oxygen Delivery Method Room Air <DO Veronica Vdies Last Filed: 12/07/23 13:01> Orders Ordered: ED Orders 12/07/23 11:50 Urinalysis and Microscopic Stat Urine Culture Stat 12/07/23 11:56 XR lumbar spine 2-3V Stat Vital Signs Vital signs: Vital Signs - 8 hr 12/07/23 11:30 Temperature 97.4 F L Pulse Rate 71 Respiratory Rate 16 Blood Pressure 170/76 H Pulse Oximetry 96 Oxygen Delivery Method Room Air MDM - Back Pain/Injury <CORONA Weinberg Last Filed: 12/07/23 13:00> Lab Data Labs: Lab Results 12/07/23 Range/Units 11:50 Urine Color Yellow Urine Appearance Clear Urine pH 5.5 (4.5-8.0) Ur Specific [place] 1.015 (1.000-1.035) Urine Protein 1+ H (Negative) Urine Glucose (UA) 3+ H (Negative) g/dL Urine Ketones 1+ H (NEGATIVE) Urine Occult Blood 2+ H (Negative) Urine Nitrate Positive H (Negative) Urine Bilirubin Negative (NEGATIVE) Urine Urobilinogen 0.2 (0.2) E.U./dL Ur Leukocyte Esterase Negative (NEGATIVE) Urine RBC 5-10/hpf H (0-5/HPF) Urine WBC 10-30/hpf H (0-5/HPF) Ur Squamous Epith Cells 0-1 /hpf (0-5/HPF) Urine Bacteria Many (>30) H (None) Ur Culture Indicated? Specimen cultured Vol Urine Centrifuged 10ml (spun) Imaging Data Lumbar XR : Radiologist's Impression: [address] [address] XRay Report Signed Patient: Meir Berman MR#: [id number] : 1940 Acct:[id number] Age/Sex: 83 / M Date of Service: 12/07/23 Loc: ED Accession Number: [id number] Procedure: XR lumbar spine 2-3V Ordering Provider: David Clay P.A-C PROCEDURE: XR LUMBAR SPINE 2-3V INDICATIONS: New Lumbar pain hx of lumbar fx 5 years ago TECHNIQUE: 3 views of the lumbar spine were acquired. COMPARISON: [facility], RG, MRI L-SPINE W/O CONTRAST, 11/24/2020, 12:03. [facility], CR, XR LUMBAR SPINE MIN 4V, 04/27/2023, 9:08. FINDINGS: Bones: 5 [id number] vertebrae are present. Minimal scoliosis. Prominent vertebral body osteophytes. Lower lumbar spine facet joint hypertrophy. No suspicious bony lesions. Soft tissues: Overlying bowel gas pattern is normal. No suspicious soft tissue calcifications. Arterial vascular calcifications. IMPRESSION: No acute bony abnormality. Advanced degenerative changes. Dictated by: Onel oCsby M.D. on 12/07/2023 at 12:42 Approved by: Onel Cosby M.D. on 12/07/2023 at 12:46 MDM Narrative Medical decision making narrative: ED course: This is a 83-year-old male presents emergency department due to acute onset lower back pain. Denies any red flag symptoms such as fevers, urinary or bowel incontinence, or saddle paresthesias. Patient does have a history of vertebral fractures in the past and lumbar x-ray was ordered which was negative. Patient UA was also taken which was positive for nitrites but patient does not report any urinary symptoms and possibly made due to the renal mass that he has in his being followed by Urology. We will prescribe lidocaine patches and recommend Tylenol as needed for the patient's suspected muscular pain. Avoided Toradol due to the CKD. Avoid muscle relaxants due to patient's age. CC: Lower back pain Complicating co-morbidities: History of lumbar stenosis with neurogenic claudication, scoliosis, prostate surgery, chronic kidney disease. Data collected from: Previous notes Medical records reviewed: Patient was last seen in this emergency department about 6 months ago due to nausea vomiting diarrhea. History of diabetes, hypertension, bladder cancer, COPD, CKD. History of compression fracture of L5 vertebra, lumbar stenosis with neurogenic claudication, facet arthropathy, lumbar, scoliosis. History of prostate surgery. Workup was reassuring and patient was discharged home. Differential considered, but not limited to: Fracture, muscular strain, complicated cystitis Exam documented above, pertinent findings include: Midline tenderness to palpation of the lumbar spine Lab Test results independently reviewed as above. Pertinent findings: UA positive for nitrites but patient not reporting any UTI symptoms. Imaging studies independently reviewed: Lumbar x-ray negative for acute changes Scores Used: None MIPS Elements: None Consultations: None Treatments: None Re-evaluations: None Discussion: Discussed plan with the patient was comfortable with the plan Diagnosis: Lumbosacral strain Disposition: see below, along with detailed discharge instructions that have been reviewed with patient as well as indications for ED re-evaluation and additional outpatient follow up <Chip Jordan DO - Last Filed: 12/07/23 13:01> Lab Data Labs: Lab Results 12/07/23 Range/Units 11:50 Urine Color Yellow Urine Appearance Clear Urine pH 5.5 (4.5-8.0) Ur Specific [place] 1.015 (1.000-1.035) Urine Protein 1+ H (Negative) Urine Glucose (UA) 3+ H (Negative) g/dL Urine Ketones 1+ H (NEGATIVE) Urine Occult Blood 2+ H (Negative) Urine Nitrate Positive H (Negative) Urine Bilirubin Negative (NEGATIVE) Urine Urobilinogen 0.2 (0.2) E.U./dL Ur Leukocyte Esterase Negative (NEGATIVE) Urine RBC 5-10/hpf H (0-5/HPF) Urine WBC 10-30/hpf H (0-5/HPF) Ur Squamous Epith Cells 0-1 /hpf (0-5/HPF) Urine Bacteria Many (>30) H (None) Ur Culture Indicated? Specimen cultured Vol Urine Centrifuged 10ml (spun) Discharge Plan Departure Patient Disposition: Home Clinical Impression: Strain of lumbar region Instructions: DI for Back Spasm Activity Restrictions/Additional Instructions: Thank you for coming to the [facility] Emergency Department today. As we discussed the x-rays were negative for any fractures in the lumbar spine. The urine did have abnormal findings by believe that this is due to your renal mass rather than any acute urinary tract infection. 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 You may also use the lidocaine patches prescribed. Please return to the emergency department if you develop any numbness between the legs, significant weakness in 1 lower extremity, fevers, or any other concerning signs or symptoms. I hope you feel better soon. Please follow up with your primary care provider within a week if your symptoms continue. If you do not have a primary care provider please contact the [facility] Resource line at [phone]. They will ask some questions about your medical history and help you get set up with a provider in the community. Prescriptions: New lidocaine 4 % adhesive patch,medicated 1 patch topical BID PRN (Reason: pain) Qty: 30 0RF Rx Instructions: may leave on for up to 12 hrs No Action INSULIN HUMAN 70/30 10ML (Humulin 70-30 Vial) 0 units SQ * UK DOSE/FREQUENCY Qty: 0 Fluoxetine Hydrochloride (Prozac) 40 mg PO Qty: 0 CALCIUM CARBONATE/VITAMIN D3 (Oyster Shell Calcium-Vit D Tab) 250 mg PO BID Qty: 0 FUROSEMIDE (Lasix) 20 mg PO Qty: 0 LISINOPRIL (Zestril / Prinivil) 20 mg PO Q DAY Qty: 0 omeprazole 20 MG capsule,delayed release(DR/EC) 20 mg PO QDAY Qty: 0 ondansetron 4 mg tablet,disintegrating 4 mg PO Q8H PRN (Reason: nausea and vomiting) Qty: 14 0RF meloxicam 15 mg tablet 15 mg PO DAILY Qty: 30 2RF diazepam [Valium] 10 mg tablet 10 mg PO .COMPLEX MDD 3 tabs PRN (Reason: 1-2 prior to MRI and for possible steroid flare) Qty: 10 0RF Rx Instructions: 10 mg PO PRN; tramadol 50 mg tablet 50 mg PO TID PRN (Reason: pain) Qty: 30 1RF Referrals: Esvin Briones MD [Primary Care Provider] - Stand Alone Forms: Patient Portal/API ED Sign-out <Chip Jordan DO - Last Filed: 12/07/23 13:01> Cosign ED Attending Cosignature Attestation: Dr Jordan Co-Sign Statement: I was available for consultation during this patient's emergency department visit. This chart is signed by myself for administrative purposes only. I did not have direct contact with this patient during this visit. They were seen independently by the APC.
--- NOTE | 2023-12-07 11:56 | DI.RAD.S_ITS ---
PROCEDURE: XR LUMBAR SPINE 2-3V INDICATIONS: New Lumbar pain hx of lumbar fx 5 years ago TECHNIQUE: 3 views of the lumbar spine were acquired. COMPARISON: [facility], RG, MRI L-SPINE W/O CONTRAST, 11/24/2020, 12:03. [facility], CR, XR LUMBAR SPINE MIN 4V, 04/27/2023, 9:08. FINDINGS: Bones: 5 [id number] vertebrae are present. Minimal scoliosis. Prominent vertebral body osteophytes. Lower lumbar spine facet joint hypertrophy. No suspicious bony lesions. Soft tissues: Overlying bowel gas pattern is normal. No suspicious soft tissue calcifications. Arterial vascular calcifications. IMPRESSION: No acute bony abnormality. Advanced degenerative changes. Dictated by: Onel Cosby M.D. on 12/07/2023 at 12:42 Approved by: Onel Cosby M.D. on 12/07/2023 at 12:46
--- NOTE | 2023-12-07 12:08 | PC.NURSE ---
Patient left department with x-ray tech.
--- NOTE | 2023-12-07 12:16 | PC.NURSE ---
Addendum entered by Omer Toth R.N. 12/07/23 12:18: This RN witnessed this conversation and agree with the note originated by student nurse. Original Note: During interview with this patient this student and RN preceptor were told from patient that had seen a urologist several months ago and has known renal mass. Patient denied having any biopsy performed.
[2023-12-07 12:21] LABS: Appearance Urine UA CLEAR; Bilirubin Urine UA NEGATIVE (NEGATIVE); Color Urine UA YELLOW; Glucose Urine UA 3+ g/dL (Negative); Ketones Urine UA 1+ (NEGATIVE); Leukocyte Esterase Urine UA NEGATIVE (NEGATIVE); Nitrite Urine UA POSITIVE (Negative); Occult Blood Urine UA 2+ (Negative); Protein Urine UA 1+ (Negative); Specific Gravity Urine UA 1.015 (1.000-1.035); Urobilinogen Urine UA 0.2 E.U./dL (0.2); pH Urine UA 5.5 (4.5-8.0)
[2023-12-07 12:28] LABS: Bacteria Urine Many (>30); Culture Indicated Urine Specimen Cultured; RBC Urine 5-10/HPF (0-5/HPF); Squamous Epithelial Cell Urine 0-1 /HPF (0-5/HPF); Urine Volume 10mL (spun); WBC Urine 10-30/HPF (0-5/HPF)
[2023-12-07 13:05] VITALS: BP 142/69; PULSE 77; O2SAT 97
== END 2023-12-07 13:05 | disposition home or self-care (01) ==
PROVIDERS: Emergency Provider Physician Assistant Medical; PCP Internal Medicine
DX: S39.012A Strain of muscle, fascia and tendon of lower back, initial encounter (principal); X58.XXXA Exposure to other specified factors, initial encounter
CPT/HCPCS: 72100; 81001; 87077; 87086; 87186; 99283

== ENCOUNTER 2024-01-03 07:22 | Outpatient (CLI) | payer MEDICARE, SELFPAY ==
[2024-01-03] VITALS (11 sets, daily range): BP systolic 113–139; BP diastolic 57–68; PULSE 79–91; RESP 11–20; TEMP 36.3; O2SAT 93–100
[2024-01-03] MEDS: MIDAZOLAM 2 MG/2 ML VIAL 1 MG IV (08:00)
[2024-01-03] MEDS: fentaNYL 100 MCG/2 ML INJ 25 MCG IV (08:00)
--- NOTE | 2024-01-03 08:00 | DI.RAD.S_ITS ---
PROCEDURE: PAIN L/S MED/LAT N RFA BILAT INDICATIONS: Bilateral L4-L5 and S1 medial branch RFA COMPARISON: None. FINDINGS: Fluoroscopic spot filming was performed to verify placement of spinal needles at the L4-5 level(s), as labeled on the films. Appropriate location(s) of the needle tip(s) was confirmed by injection of iodinated contrast. IMPRESSION: Fluoro guidance was provided intraoperatively for bilateral L4-5 and S1 medial branch RFA performed by ordering physician. Dictated by: Wisam Barber M.D. on 01/03/2024 at 11:36 Approved by: Wisam Barber M.D. on 01/03/2024 at 11:37
[2024-01-03] MEDS: LIDOCAINE 1% 20 ML 5 ML INJ (08:06)
[2024-01-03] MEDS: BUPIVACAINE 0.5% (PF) 10 ML VIAL 5 ML INJ (08:06)
--- NOTE | 2024-01-03 08:14 | PC.NURSE ---
grounding pad placed to left calf.
--- NOTE | 2024-01-03 08:45 | P.PCN_ITS ---
Date/Time/Diagnoses Date of procedure: 01/03/24 Time of procedure: 08:45 Pre-procedure diagnosis: 1. RECALCITRANT FACET ARTHROPATHY Post-procedure diagnosis: same Procedure Notes Procedure: 1. BILATERAL L4 AND L5 MEDIAL BRANCH RADIOFREQUENCY NEUROTOMY AND S1 DORSAL RAMUS BRANCH RADIOFREQUENCY NEUROTOMY Indications: Meir is referred by Dr. Briones for treatment of facet arthropathy. Physician: Crow Jennings Total Fluoroscopy time (seconds): 21 Total sedation minutes: 33 Complications: none Procedure in detail & Post-procedure care: DESCRIPTION OF PROCEDURE Bilateral L4 and L5 medial branch radiofrequency neurotomy and bilateral S1 dorsal ramus radiofrequency neurotomy under fluoroscopy with conscious sedation. The patient is well known to this clinic having undergone previous facet injections with good but temporary relief. The patient has experienced appropriate, concordant relief with previous facet and median branch blocks but the patient's pain has been recalcitrant to further conservative measures. Therefore, based upon the patient's relief and persistent symptoms, the patient is considered an appropriate candidate for facet rhizotomy. All of the patient's questions regarding the risks versus benefits of the procedure, including, but not limited to, bleeding, infection, temporary as well as lasting nerve injury, paralysis, stroke, and , as well treatment alternatives were answered to satisfaction. After obtaining informed consent, denial of pertinent drug allergies, as well as being made aware of the potential risks of bleeding, infection, spinal cord trauma, paralysis, temporary and permanent nerve damage, seizure, stroke, and possible , the patient was brought to the fluoroscopy suite and positioned prone on the fluoroscopy table. The lumbar region was prepped in usual sterile fashion and covered with a fenestrated drape in the usual sterile fashion. Appropriate monitors applied including pulse oximeter, pulse, and blood pressure for regular monitoring throughout the procedure. After review of previous anaesthesic history and IV conscious sedation the patient was deemed safe to proceed with today's procedure with IV conscious sedation as ASA class II designation. Safety time-out was performed to confirm patient ID, procedure to be performed and site of procedure. IV sedation was accomplished with a combination of 1mg of Versed and 25mcg of Fentanyl administered by the RN after DO order, titrated to patient comfort during the course of the procedure while the patient remained responsive to all verbal commands. After local infiltration using 1% lidocaine, under fluoroscopic guidance, a 10- cm RF insulated needle with a 10-mm active tip was positioned parallel to the junction of the right sacral ala and the superior articulating process where the S1 dorsal ramus resides. Needle placement was confirmed with motor stimulation of .5v on the right which produced local stimulation without radicular component. The stimulation was then increased to 2v with, once again, only local multifidus stimulation without radicular component. The needle was then removed and the identical procedure was performed along the length of the right L5 medial branch with motor stimulation at .7v on the right. The identical procedure was once again performed along the length of the right L4 medial branch with motor stimulation of .5v on the right. The medial branches were then anesthetised with 0.5% Marcaine. This was then followed by two discreet lesions performed at 80 degrees Celsius for 90 seconds each. The identical procedure was repeated on the left. The patient tolerated the procedure well without signs or symptoms of complications prior to transfer to the recovery area continued monitoring without incident. The patient was then transferred to the recovery area where they were observed for an appropriate period of time after the injection. The patient reported a VAS score of 9 prior to the procedure and a post-procedure VAS of 0. POST OP INSTRUCTIONS The patient was provided a Pain Log to continue to record the patient's response to the target-specific procedure prior to the patient's follow-up visit with the referring physician. Additionally, specific post-injection care instructions and a contact number to our office were provided if concerns arise regarding possible complications associated with the procedure are suspected.
== END 2024-01-03 08:50 | disposition home or self-care (01) ==
PROVIDERS: PCP Internal Medicine; Referring Provider Physical Medicine & Rehabilitation; Visit Provider Physical Medicine & Rehabilitation
DX: M47.816 Spondylosis without myelopathy or radiculopathy, lumbar region (principal); M47.817 Spondylosis without myelopathy or radiculopathy, lumbosacral region
CPT/HCPCS: 64635; 64636; 99152; 99153; J2250; J3010

== ENCOUNTER 2024-03-18 13:57 | Outpatient (CLI) | payer MEDICARE, SELFPAY ==
[2024-03-18] VITALS (11 sets, daily range): BP systolic 135–181; BP diastolic 63–82; PULSE 72–84; RESP 13–18; TEMP 36.4; O2SAT 96–100
--- NOTE | 2024-03-18 15:00 | DI.RAD.S_ITS ---
PROCEDURE: PAIN L INTERLAMINAR/CAUDAL INJ INDICATIONS: SPONDYLOSIS COMPARISON: [facility], XA, PAIN L INTERLAMINAR/CAUDAL INJ, 05/15/2023, 11:10. FINDINGS: Fluoroscopic spot filming was performed to verify placement of spinal needles at the L2-3 level(s), as labeled on the films. Appropriate location(s) of the needle tip(s) was confirmed by injection of iodinated contrast. IMPRESSION: Fluoro guidance was provided intraoperatively for L2-3 translaminar a VILMA performed by ordering physician. Dictated by: Wisam Barber M.D. on 03/19/2024 at 13:50 Approved by: Wisam Barber M.D. on 03/19/2024 at 13:51
[2024-03-18] MEDS: MIDAZOLAM 2 MG/2 ML VIAL 1 MG IV ×2 (15:53→16:08)
[2024-03-18] MEDS: BETAMETHASONE 30 MG/5 ML MDV 6 MG INJ (15:56)
[2024-03-18] MEDS: BUPIVACAINE 0.25% (PF) VIAL 2 ML INJ (15:56)
[2024-03-18] MEDS: iopamidoL 15 ML VIAL 3 ML INJ (15:56)
[2024-03-18] MEDS: DEXAMETHASONE 10 MG/ML VIAL INJ (15:57)
--- NOTE | 2024-03-18 16:14 | P.PCN_ITS ---
Date/Time/Diagnoses Date of procedure: 03/18/24 Time of procedure: 16:15 Pre-procedure diagnosis: 1. HNP WITH RADICULAR FEATURES, 2. MULTILEVEL CENTRAL STENOSIS, Post-procedure diagnosis: same Procedure Notes Procedure: 1. FLUOROSCOPICALLY GUIDED CONTRAST CONTROLLED INTERLAMINAR EPIDURAL STEROID INJECTION - L2/3 Indications: Meir is referred by Dr. Briones for treatment of Bilateral Foraminal Stenosis L>R LE symptoms. Physician: Crow Jennings Total Fluoroscopy time (seconds): 17 Total sedation minutes: 18 Complications: none Procedure in detail & Post-procedure care: FINDINGS Multilevel Central Spinal Stenosis with Nerve Root Compression DESCRIPTION OF PROCEDURE Fluoroscopically guided, contrast-controlled L2/3 translaminar epidural steroid injection. Following review of allergy and review of potential side effects and complications, including, but not necessarily limited to, infection, allergic reaction, local tissue breakdown, temporary as well as permanent nerve injury, paralysis, stroke and possible , the patient indicated that the patient understood and agreed to proceed. An informed consent document was signed by the patient, witnessed by a nurse, and placed in the patient's chart. Additionally, other treatment options including modalities, medications, and physical therapy were reviewed with the patient. After review of previous anaesthesic history and IV conscious sedation the patient was deemed safe to proceed with today?s procedure with IV conscious sedation as ASA class II designation. Safety time-out was performed to confirm p atient ID, procedure to be performed and site of procedure. IV sedation was accomplished with a combination of 2mg Versed administered by the RN after DO order, titrated to patient comfort during the course of the procedure while the patient remained responsive to all verbal commands. In the prone position, following sterile prep and drape of the lumbar region,the L2/3 translaminar space was identified fluoroscopically. The skin was anesthetized via a 25-gauge, 1.5-inch needle with 1% lidocaine solution. At this point, a 22-gauge short bevel spinal needle was atraumatically introduced and advanced under fluoroscopic guidance into the region of the L2/3 translaminar space. Depth was confirmed on lateral view. Radiological data, including multiple fluoroscopic views of the lumbar spine, reveal a spinal needle at the L2/3 translaminar space. Lateral views then show placement of the needle in the epidural space. Subsequent views show contrast material flowing superiorly and inferiorly in the epidural space. No vascular or intrathecal uptake is observed. At this point, using loss of resistance technique with saline and air, the epidural space was entered. This was confirmed following negative aspiration with injection of approximately 1.5 cc of Isovue 200, showing excellent epidural flow without vascular or intrathecal uptake. At this point, 1 cc of 1% lidocaine solution combined with 2cc or 10mg of dexamethasone and 6mg of betamethasone was injected without incident. The patient tolerated the procedure well without signs or symptoms of complications prior to transfer to the recovery area continued monitoring without incident. The patient was then transferred to the recovery area where they were observed for an appropriate period of time after the injection. The patient reported a VAS score of 6 prior to the procedure and a post-procedure VAS of 0. POST OP INSTRUCTIONS The patient was provided a Pain Log to continue to record their response to the target-specific procedure prior to follow-up visit with their referring physician. Additionally, specific post-injection care instructions and a contact number to our office were provided if concerns arise regarding possible complications associated with the procedure are suspected.
--- NOTE | 2024-03-18 16:26 | PC.NURSE ---
Patient had scab to right elbow when getting on table leaned down on his elbow and slid it forward and dcraped the scap off. Sanguineous drainage, wiped with gauze, gauze dressing placed with coban over top while in procedure room. Returned to post procedure room. No s/sx of infection, no further drainage. Cleaned with NS and dabbed with gauze. Non stick tegaderm with pad placed to right elbow. Patient instructed to monitor for s/sx of infection.
== END 2024-03-18 16:44 | disposition home or self-care (01) ==
PROVIDERS: PCP Internal Medicine; Referring Provider Physical Medicine & Rehabilitation; Visit Provider Physical Medicine & Rehabilitation
DX: M51.16 Intervertebral disc disorders with radiculopathy, lumbar region (principal); M48.061 Spinal stenosis, lumbar region without neurogenic claudication
CPT/HCPCS: 62323; 99152; J0702; J1100; J2250; J3490

== ENCOUNTER 2024-05-15 15:37 | Emergency (ER) | payer MEDICARE, SELFPAY ==
[2024-05-15 15:40] VITALS: BP 160/70; PULSE 99; RESP 18; TEMP 36.8; O2SAT 97; BMI 22.8
--- NOTE | 2024-05-15 15:47 | DI.CT.S_ITS ---
PROCEDURE: CT CERVICAL SPINE WO CON INDICATIONS: fall/LOC TECHNIQUE: Noncontrast 3 mm thick sections acquired from the skull base to the T4 level. Sagittal and coronal reformats were then constructed. For radiation dose reduction, the following was used: automated exposure control, adjustment of mA and/or kV according to patient size. COMPARISON: [facility], CT, CT HEAD/BRAIN WO CON, 05/15/2024, 16:04. [facility], RG, MRI C-SPINE W/O CONTRAST, 06/07/2022, 11:38. FINDINGS: Image quality: Excellent. Bones: No fractures or dislocations. Visualized superior ribs are intact. Multifocal prominent underlying degenerative changes are seen. Soft tissues: Prevertebral soft tissues are normal in thickness. No paravertebral hematomas. No apical pneumothoraces. Changes can be seen at the lung apices. Atherosclerotic calcification is noted. IMPRESSION: No displaced fracture or traumatic subluxation. Multiple levels of prominent underlying degenerative change can be seen. There are emphysematous changes seen at the lung apices. Dictated by: Drew Kirby M.D. on 05/15/2024 at 15:33 Approved by: Drew Kirby M.D. on 05/15/2024 at 15:35
--- NOTE | 2024-05-15 15:47 | DI.CT.S_ITS ---
PROCEDURE: CT HEAD/BRAIN WO CON INDICATIONS: fall/LOC TECHNIQUE: Noncontrast 4.5 mm thick angled axial sections acquired from the foramen magnum to the vertex, with coronal and sagittal reformats. For radiation dose reduction, the following was used: automated exposure control, adjustment of mA and/or kV according to patient size. COMPARISON: [facility], CT, CT CERVICAL SPINE WO CON, 05/15/2024, 16:04. FINDINGS: Image quality: Diagnostic. CSF spaces: Basal cisterns are patent. No extra-axial fluid collections. The ventricles are symmetric in size and shape. Brain: No intracranial bleeds or masses. There is cerebral volume loss for age, with resultant ventricular and sulcal prominence. There are periventricular and deep white matter chronic small vessel ischemic changes. There is intracranial internal carotid artery atherosclerosis. Skull and face: Calvarium and visualized facial bones appear intact, without suspicious lesions. Sinuses: Visualized sinuses and mastoids are clear. IMPRESSION: No acute intracranial hemorrhage is seen. No acute intracranial pathology. Dictated by: Drew Kirby M.D. on 05/15/2024 at 15:32 Approved by: Drew Kirby M.D. on 05/15/2024 at 15:33
[2024-05-15] MEDS: HYDROMORPHONE 1 MG INJ IM (17:16)
--- NOTE | 2024-05-15 17:48 | ED_ITS ---
<Statement entered by Riaz Coats DO - 05/15/24 19:02> Dr. Coats: I was immediately available in the department for consultation. Documentation has been reviewed. I agree with assessment and plan. HPI - Fall General Chief Complaint: Fall Stated Complaint: fell, skin hanging on lt arm, blood thinners, head Time Seen by Provider: 05/15/24 16:44 Source: patient Mode of arrival: Ambulatory History of Present Illness HPI Narrative: This patient is an 84-year-old male that sustained a fall 2 days ago and sustained multiple skin tears to the entire left upper extremity. This apparently occurred at home. He denies head strike, neck pain, chest pain or shortness of breath before or during the fall. He states that this was a mechanical fall in nature. The patient apparently went [facility] where they gave him a tetanus update but they did not address the wounds. He states that he and his placed bandages over the affected areas immediately after the fall, however they have become stuck in to painful to remove. The patient states that he is a known diabetic and has not checked his blood sugar in over a week. Related Data Home Medications Medication Instructions Recorded Confirmed CALCIUM CARBONATE/VITAMIN D3 250 mg PO BID ##0 07/30/08 02/25/24 (Oyster Shell Calcium-Vit D Tab) FUROSEMIDE (Lasix) 20 mg PO ##0 07/30/08 02/25/24 Fluoxetine Hydrochloride (Prozac) 40 mg PO ##0 07/30/08 02/25/24 INSULIN HUMAN 70/30 10ML (Humulin 0 units SQ * UK DOSE/FREQUENCY ##0 07/30/08 02/25/24 70-30 Vial) LISINOPRIL (Zestril / Prinivil) 20 mg PO Q DAY ##0 11/20/08 02/25/24 omeprazole 20 mg capsule,delayed 20 mg PO QDAY ##0 01/20/13 02/25/24 release ibuprofen 200 mg capsule 200 mg PO Q6H PRN 02/25/24 02/25/24 oxycodone-acetaminophen 5 mg-325 1 tab PO 3XD PRN 02/25/24 02/25/24 mg tablet Previous Rx's Medication Instructions Recorded lidocaine 4 % topical patch 1 patch topical BID PRN pain #30 ea 12/07/23 levetiracetam 500 mg tablet 500 mg PO BID #60 tabs 02/25/24 (Keppra) doxycycline hyclate 100 mg tablet 100 mg PO BID #20 tabs 05/15/24 mupirocin 2 % topical ointment 1 applic topical TID #50 grams 05/15/24 Allergies Allergy/AdvReac Type Severity Reaction Status Date / Time carvedilol [CARVEDILOL] Allergy Unknown Verified 02/25/24 13:51 metformin [METFORMIN] Allergy Unknown Verified 02/25/24 13:51 Review of Systems Review of Systems Narrative: General: See HPI Integumentary: See HPI All other review of systems have been reviewed and are ultimately negative unless otherwise stated in the HPI Patient History Medical History Compression fracture of L5 vertebra Lumbar stenosis with neurogenic claudication Facet arthropathy, lumbar Scoliosis Surgical History History of prostate surgery Family History Father History of heart attack Family/Other Diabetes mellitus Social History Smoking Status: Never smoker Smoking Status: Never smoker alcohol intake frequency: 0-2 drinks per day Substance Use Type: does not use Exam Initial Vital Signs Initial Vital Signs: Vital Signs Temperature 98.2 F 05/15/24 15:40 Pulse Rate 99 H 05/15/24 15:40 Respiratory Rate 18 05/15/24 15:40 Blood Pressure 160/70 H 05/15/24 15:40 Pulse Oximetry 97 05/15/24 15:40 Oxygen Delivery Method Room Air 05/15/24 15:40 Const General: cooperative, healthy appearing, comfortable, well developed and well groomed [facility] Head: normal to inspection and normocephalic Eyes General: Yes appearance normal, both eyes and all related structures Pupils: PERRL, normal by confrontation and accommodation normal Neck Neck: normal visual inspection and full ROM Resp Effort & Inspection: normal respiratory effort and able to speak in complete sentences Cardio Rate: regular rate Rhythm: regular rhythm Heart Sounds: S1 normal and S2 normal Pulses: brachial pulses present and radial pulses present Back/Spine/Pelvis Back: normal to inspection Cervical Spine: normal cervical lordosis and cervical ROM normal Skin Other: Multiple skin tears noted to the entire left upper extremity. These are beyond repair from a laceration or Steri-Strips standpoint. No active bleeding. Multiple, dry dressings are stuck to the left upper extremity. After the dressings were removed, no evidence of bleeding, lymphangitic streaking, fluctuance or cellulitis. Neuro General: patient alert, patient awake, patient oriented x3, gait normal, moves all extremities and CN's II-XI intact bilaterally Extrem General: full ROM and capillary refill normal Psych Appearance: grossly normal and well kempt Course Course Course Narrative: Patient was seen and examined. The dressings were soaked in normal saline. There were multiple attempts made to remove the dressings without success. Patient then received Dilaudid 1 mg IM in the dressings were able to be removed without much difficulty. Bacitracin was then applied to the affected areas as well as Xeroform gauze and a sterile, non-stick dressing was placed over nearly the entire left arm. Patient tolerated the procedure well. He was then prepped for discharge home. Orders Ordered: ED Orders 05/15/24 15:47 CT cervical spine wo con Stat CT head/brain wo con Stat Discontinued Medications Bacitracin (Bacitracin Oint 0.9 Gm Pckt) 1 applic TOP NOW ONE Stop: 05/15/24 17:41 Hydromorphone HCl (Hydromorphone 1 Mg Inj) 1 mg IM NOW ONE Stop: 05/15/24 17:04 Last Admin: 05/15/24 17:16 Dose: 1 mg Documented By: LEON Vital Signs Vital signs: Vital Signs - 8 hr 05/15/24 15:40 Temperature 98.2 F Pulse Rate 99 H Respiratory Rate 18 Blood Pressure 160/70 H Pulse Oximetry 97 Oxygen Delivery Method Room Air MDM - Fall Differential Diagnosis Differential diagnosis: Likely other (Skin tear, contusion, fall, fracture, head strike, skull fracture with or without intracranial bleed/hemorrhage, cervical fracture) Medical Records Attestation: I reviewed the patient's medical records. Lab Data Attestation: I reviewed the patient's lab results. [facility] Narrative Medical decision making narrative: At this time, this 84-year-old male appears to have sustained a mechanical fall at home 2 days ago. We were able to properly dressed the wound so that there will be no other complications acutely. The patient will be started on doxycycline as well as mupirocin. Strict wound care instructions were provided to he and his at bedside. Patient has been advised that it was very important to maintain tight blood sugar control while these wounds heal in that he needs to contact his PCP tomorrow and discuss future care with a pensions retirement plan specialist. I do not believe he sustained any type of skull fracture or cerv ical fracture, according to the CT results from the radiologist. He has full range of motion of the left shoulder, left elbow and left wrist. I do not believe he sustained any type of fractures of this extremity. Patient and understand the treatment plan. There are no additional questions at the time of discharge and they will follow up as requested Discharge Plan Departure Patient Disposition: Home Clinical Impression: Skin tear of left upper extremity Fall Qualifiers: Encounter type: initial encounter Qualified Code(s): W19.XXXA - Unspecified fall, initial encounter Contusion of arm, left Qualifiers: Encounter type: initial encounter Qualified Code(s): S40.022A - Contusion of left upper arm, initial encounter Instructions: How to Prevent Falls Activity Restrictions/Additional Instructions: Keep the areas clean, covered and dry Start the medications today as prescribed Wound care is discussed Follow up your PCP tomorrow as you will likely require a referral to wound care Return here immediately if worse Prescriptions: New mupirocin 2 % ointment 1 applic topical TID Qty: 50 1RF doxycycline hyclate 100 mg tablet 100 mg PO BID Qty: 20 0RF No Action INSULIN HUMAN 70/30 10ML (Humulin 70-30 Vial) 0 units SQ * [place] DOSE/FREQUENCY Qty: 0 Fluoxetine Hydrochloride (Prozac) 40 mg PO Qty: 0 CALCIUM CARBONATE/VITAMIN D3 (Oyster Shell Calcium-Vit D Tab) 250 mg PO BID Qty: 0 FUROSEMIDE (Lasix) 20 mg PO Qty: 0 LISINOPRIL (Zestril / Prinivil) 20 mg PO Q DAY Qty: 0 omeprazole 20 MG capsule,delayed release(DR/EC) 20 mg PO QDAY Qty: 0 lidocaine 4 % adhesive patch,medicated 1 patch topical BID PRN (Reason: pain) Qty: 30 0RF Rx Instructions: may leave on for up to 12 hrs oxycodone-acetaminophen 5-325 mg tablet 1 tab PO 3XD PRN ibuprofen 200 mg capsule 200 mg PO Q6H PRN levetiracetam [Keppra] 500 mg tablet 500 mg PO BID Qty: 60 1RF Referrals: Esvin Briones MD [Primary Care Provider] - Stand Alone Forms: Patient Portal/API
[2024-05-15 18:07] VITALS: BP 140/69; PULSE 99; RESP 20; O2SAT 95
[2024-05-15] MEDS: BACITRACIN OINT 0.9 GM PCKT 1 APPLIC TOP (18:24)
== END 2024-05-15 16:44 | disposition home or self-care (01) ==
PROVIDERS: Emergency Provider Physician Assistant; PCP Internal Medicine
DX: S40.022A Contusion of left upper arm, initial encounter (principal); S41.112A Laceration without foreign body of left upper arm, initial encounter; W19.XXXA Unspecified fall, initial encounter; Z79.01 Long term (current) use of anticoagulants
CPT/HCPCS: 70450; 72125; 82962; 96372; 99283; 99284; J1170

== ENCOUNTER → 2024-05-30 13:01 | Outpatient (CLI) | payer MEDICARE, SELFPAY | LOC: WC 13:04 | PROVIDERS: Family Provider Internal Medicine; PCP Internal Medicine; Referring Provider Internal Medicine; Visit Provider Surgery | DX: S41.112A Laceration without foreign body of left upper arm, initial encounter (principal); S51.812A Laceration without foreign body of left forearm, initial encounter; L98.8 Other specified disorders of the skin and subcutaneous tissue; E11.628 Type 2 diabetes mellitus with other skin complications; N18.9 Chronic kidney disease, unspecified | CPT/HCPCS: 11042; 87070; 87075; 87077; 87186; 87205; 99203; 99213 ==

== ENCOUNTER → 2024-06-09 09:13 | Outpatient (CLI) | payer MEDICARE, SELFPAY | LOC: WC 09:14 | PROVIDERS: Family Provider Internal Medicine; PCP Internal Medicine; Referring Provider Internal Medicine; Visit Provider Surgery | DX: S41.112D Laceration without foreign body of left upper arm, subsequent encounter (principal) | CPT/HCPCS: 99203; 99213 ==

== ENCOUNTER 2025-02-11 11:42 | Emergency (ER) | payer MEDICARE, SELFPAY ==
[2025-02-11] VITALS (10 sets, daily range): BP systolic 126–152; BP diastolic 59–74; PULSE 80–91; RESP 13–21; TEMP 36.1–36.5; O2SAT 93–97; BMI 23.0
--- NOTE | 2025-02-11 12:28 | PC.NURSE ---
pt has a equal chest rise and fall and has clear lung sounds bilaterally and throughout.
--- NOTE | 2025-02-11 12:36 | DI.RAD.S_ITS ---
PROCEDURE: XR CHEST 1V INDICATIONS: syncope fall on chest TECHNIQUE: One view of the chest was acquired. COMPARISON: None. FINDINGS: Surgical changes and devices: None. Lungs and pleura: Emphysematous changes are seen. Increased interstitial lung markings also noted bilaterally. Superimposed bilateral lower lobe airspace opacities cannot be excluded. No pleural effusions or pneumothorax. Mediastinum: Mediastinal contours appear normal. Heart size is normal. Bones and chest wall: No suspicious bony lesions. Overlying soft tissues appear unremarkable. 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 Cannot rule out superimposed small bibasilar infiltrates versus atelectasis. No significant pleural effusion. No pneumothorax. Dictated by: Wisam Barber M.D. on 02/11/2025 at 13:28 Approved by: Wisam Barber M.D. on 02/11/2025 at 13:30
--- NOTE | 2025-02-11 12:36 | EKG_ITS ---
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
--- NOTE | 2025-02-11 12:44 | DI.CT.S_ITS ---
PROCEDURE: CT CHEST ABD PEL W CON INDICATIONS: fall syncope 5 days ago chest wall diffuse ecchymosis TECHNIQUE: After the administration of intravenous contrast, 5 mm thick sections acquired from the lung apices to the symphysis. 2.5 mm thick coronal and sagittal reformats were acquired. Additional 7 mm thick coronal maximum intensity projection (MIP) reformats acquired through the lungs. Optional 10-minute delayed imaging may be performed from the kidneys to the bladder. For radiation dose reduction, the following was used: automated exposure control, adjustment of mA and/or kV according to patient size. COMPARISON: None. FINDINGS: Image quality: Diagnostic. CHEST: Lower Neck: No enlarged lymph nodes. Thyroid: No thyroid nodules which require sonographic evaluation. Axillae: No enlarged lymph nodes. Chest Wall: No subcutaneous gas. Lungs and Pleura: No pulmonary contusions or lacerations. No acute airspace opacities. No pneumothorax or hemothorax. Advanced centrilobular emphysema is seen. Interlobular septal thickening throughout periphery of bilateral lung banegas are noted consistent with pulmonary fibrosis. Mediastinum: No mediastinal hematomas. Heart size is enlarged. No pericardial effusion. Thoracic aorta and pulmonary arteries demonstrate normal size and enhancement. 3 vessel coronary artery atherosclerotic calcifications are seen. No mediastinal or hilar adenopathy. Esophagus is normal in caliber. Small hiatal hernia. ABDOMEN: Liver: No lacerations. Moderate hepatic steatosis is seen. Gallbladder: Not visualized. Biliary ducts: No biliary dilation. Pancreas: Homogenous enhancement. Spleen: Homogenous enhancement without laceration or hematoma. Adrenal Glands: Symmetric enhancement. Kidneys and Ureters: Symmetric enhancement. No hydronephrosis. No solid mass. No complex renal cystic lesion which requires follow up. Stomach and Bowel: Normal colonic caliber, without significant wall thickening. Moderate fecal stasis in the colon is seen. No abscess collection. Peritoneum: No abnormal intraperitoneal fluid. No free air. Ventral Wall: No hernia. Abdominal Nodes: No retroperitoneal or mesenteric adenopathy by size criteria. Vessels: Aorta and inferior vena cava are normal in size. Moderate atherosclerotic calcifications in abdominal aorta is seen. PELVIS: Pelvic Organs: Unremarkable. Bladder: Normal thickness. Pelvic Nodes: No enlarged lymph nodes. Miscellaneous: Small left inguinal hernia containing fat only. Bones: Pelvic ring and hip joints appear intact. No displaced rib fractures. Spondylitic changes throughout thoracic and lumbar spine is seen. No acute vertebral body compression fracture. IMPRESSION: 1. No evidence of traumatic injury to the chest, abdomen or pelvis. 2. Advanced centrilobular emphysema and pulmonary fibrosis. No focal infiltrate, pleural effusion or pneumothorax. 3. Cardiomegaly, no pericardial effusion. Moderate to severe 3 vessel coronary artery atherosclerotic calcifications. No mediastinal or hilar lymphadenopathy. 4. No acute inflammatory process is seen in abdomen or pelvis. 5. Other incidental findings as above. Dictated by: Wisam Barber M.D. on 02/11/2025 at 13:43 Approved by: Wisam Barber M.D. on 02/11/2025 at 13:51
--- NOTE | 2025-02-11 12:44 | DI.CT.S_ITS ---
PROCEDURE: CT CERVICAL SPINE WO CON INDICATIONS: fall syncope 5 days ago TECHNIQUE: Noncontrast 3 mm thick sections acquired from the skull base to the T4 level. Sagittal and coronal reformats were then constructed. For radiation dose reduction, the following was used: automated exposure control, adjustment of mA and/or kV according to patient size. COMPARISON: [facility], CT, CT CERVICAL SPINE WO CON, 05/15/2024, 16:04. FINDINGS: Image quality: Excellent. Bones: No fractures or dislocations. Visualized superior ribs are intact. Severe cervical spondylosis. Findings include multilevel canal stenosis and foraminal stenosis. Soft tissues: Prevertebral soft tissues are normal in thickness. No paravertebral hematomas. No apical pneumothoraces. IMPRESSION: No displaced fracture or traumatic subluxation. Severe cervical spondylosis with multilevel canal stenosis and foraminal stenosis. Dictated by: Melchor Ny M.D. on 02/11/2025 at 13:35 Approved by: Melchor Ny M.D. on 02/11/2025 at 13:36
--- NOTE | 2025-02-11 12:44 | DI.RAD.S_ITS ---
PROCEDURE: XR SHOULDER RT MIN 2V INDICATIONS: fall concern R clavicle / shoulder fx TECHNIQUE: 3 views of the shoulder were acquired. COMPARISON: None. FINDINGS: Bones: Moderate acromioclavicular joint and glenohumeral joint osteoarthritic changes are seen. No acute fractures or dislocations. No suspicious bony lesions. Visualized ribs appear intact. Soft tissues: No suspicious soft tissue calcifications. IMPRESSION: No acute right shoulder fracture or dislocation. Moderate acromioclavicular joint and glenohumeral joint osteoarthritis. Dictated by: Wisam Barber M.D. on 02/11/2025 at 13:30 Approved by: Wisam Barber M.D. on 02/11/2025 at 13:31
--- NOTE | 2025-02-11 12:44 | DI.CT.S_ITS ---
PROCEDURE: CT HEAD/BRAIN WO CON INDICATIONS: fall syncope days ago TECHNIQUE: Noncontrast 4.5 mm thick angled axial sections acquired from the foramen magnum to the vertex, with coronal and sagittal reformats. For radiation dose reduction, the following was used: automated exposure control, adjustment of mA and/or kV according to patient size. COMPARISON: [facility], CT, CT HEAD/BRAIN WO CON, 05/15/2024, 16:04. FINDINGS: Image quality: Diagnostic. CSF spaces: Basal cisterns are patent. No extra-axial fluid collections. The ventricles are symmetric in size and shape. Brain: No intracranial bleeds or mass effect. There is cerebral volume loss, with resultant ventricular and sulcal prominence. There are periventricular and deep white matter chronic small vessel ischemic changes. 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 There is intracranial internal carotid artery atherosclerosis. Skull and face: Calvarium and visualized facial bones appear intact, without suspicious lesions. Sinuses: Visualized sinuses and mastoids are clear. IMPRESSION: No acute intracranial pathology. Dictated by: Melchor Ny M.D. on 02/11/2025 at 13:32 Approved by: Melchor Ny M.D. on 02/11/2025 at 13:34
--- NOTE | 2025-02-11 12:46 | ED.FALL ---
HPI - Fall <Ameena Carrero PA-C - Last Filed: 02/11/25 19:41> General Chief Complaint: Fall Stated Complaint: Possible broken right Collarbone x 4 days Time Seen by Provider: 02/11/25 12:34 Mode of arrival: Ambulatory History of Present Illness HPI Narrative: Mr. Berman is a very pleasant 85-year-old male with a past medical history of insulin-dependent type 2 diabetes, HTN, chronic back pain on pain management who presents to the emergency department for concern of right clavicle fracture after a syncopal episode that occurred 5 days ago. He is not on anticoagulation. Patient states that 5 days ago he got up to go to the bathroom in the middle of the night but while on the way there ended up passing out, falling forward and hitting his chest on his stove. He woke up on the ground, his came to check on him because she heard him fall and they went back to bed. States that he sometimes passes out and did not think much of this, states he felt slightly lightheaded before passing out. He experienced no dizziness, chest pain, shortness of breath precipitating the fall. Reports that he has had persistent right clavicle and shoulder pain since this fall, he hoped it would go away on its own but it did not which is why he came to the ER 5 days later. He has significant bruising across his anterior chest wall and deformity of the right clavicle. At this time he denies pain unless he tries to move his right shoulder. He does take oxycodone for chronic back pain so that has been controlling his pain pretty well. He denies headache, epistaxis, neck pain, abdominal pain, nausea, vomiting, dysuria, hematuria. He has been ambulating independently. He is here with his . Former smoker. TDap UTD 2023. Related Data Home Medications ?Medication ?Instructions ?Recorded ?Confirmed CALCIUM CARBONATE/VITAMIN D3 250 mg PO BID ##0 07/30/08 02/25/24 (Oyster Shell Calcium-Vit D Tab) FUROSEMIDE (Lasix) 20 mg PO ##0 07/30/08 02/25/24 Fluoxetine Hydrochloride (Prozac) 40 mg PO ##0 07/30/08 02/25/24 INSULIN HUMAN 70/30 10ML (Humulin 0 units SQ * UK DOSE/FREQUENCY ##0 07/30/08 02/25/24 70-30 Vial) LISINOPRIL (Zestril / Prinivil) 20 mg PO Q DAY ##0 11/20/08 02/25/24 omeprazole 20 mg capsule,delayed 20 mg PO QDAY ##0 01/20/13 02/25/24 release ibuprofen 200 mg capsule 200 mg PO Q6H PRN 02/25/24 02/25/24 oxycodone-acetaminophen 5 mg-325 1 tab PO 3XD PRN 02/25/24 02/25/24 mg tablet Previous Rx's ?Medication ?Instructions ?Recorded lidocaine 4 % topical patch 1 patch topical BID PRN pain #30 ea 12/07/23 levetiracetam 500 mg tablet 500 mg PO BID #60 tabs 02/25/24 (Keppra) doxycycline hyclate 100 mg tablet 100 mg PO BID #20 tabs 05/15/24 mupirocin 2 % topical ointment 1 applic topical TID #50 grams 05/15/24 sulfamethoxazole 800 1 tab PO BID 7 days #14 tabs 02/11/25 mg-trimethoprim 160 mg tablet (Bactrim DS) Allergies Allergy/AdvReac Type Severity Reaction Status Date / Time carvedilol (CARVEDILOL) Allergy Unknown Verified 02/11/25 12:01 metformin (METFORMIN) Allergy Unknown Verified 02/11/25 12:01 Review of Systems <Ameena Carrero PA-C - Last Filed: 02/11/25 19:41> Review of Systems ROS Unobtainable: All systems reviewed & are unremarkable except as noted in HPI and below Patient History <Ameena Carrero PA-C - Last Filed: 02/11/25 19:41> Medical History Compression fracture of L5 vertebra Lumbar stenosis with neurogenic claudication Facet arthropathy, lumbar Scoliosis Surgical History History of prostate surgery Family History Father History of heart attack Family/Other Diabetes mellitus Social History Smoking Status: Unknown if ever smoked Smoking Status: Unknown if ever smoked alcohol intake frequency: 0-2 drinks per day Alcohol type: hard liquor Exam <Ameena Carrero PA-C - Last Filed: 02/11/25 19:41> Narrative Exam Narrative: GENERAL: 85 year old patient appears stated age. Frail elderly patient in no acute distress. HEAD: Atraumatic. Normocephalic. No palpable skull wounds. EYES: Pupils equal, round, constricted. Extraocular motions intact. No scleral icterus. No injection or drainage. ENT: Hearing aids in place. Nose without bleeding, purulent drainage. No septal hematoma. No nasal bridge deformity. Throat without erythema, tonsillar hypertrophy or exudate. Airway patent. NECK: Trachea midline. Cervical ROM intact. CARDIOVASCULAR: Regular rate and rhythm. Significant ecchymosis across the entire anterior chest wall with tenderness of the medical right clavicle. No skin tenting, open wounds, or crepitus. RESPIRATORY: ?Nonlabored respirations. ?Speaking in clear, full sentences. ?Clear to auscultation. Breath sounds equal bilaterally. No wheezes, rales, or rhonchi. ? GASTROINTESTINAL: Abdomen soft, non-tender, nondistended. EXTREMITIES: Pain with attempted abduction of right shoulder, right clavicle deformity present. Strong radial pulses bilaterally and sensation intact to light touch in the distribution of the median, ulnar, radial nerves. BACK: No midline spinal tenderness, no ecchymosis or wounds of the back. NEURO: Alert and oriented, able to provide his own history. No facial asymmetry. Sensation intact throughout light touch in the face, upper and lower extremities. SKIN: Anterior chest wall ecchymosis. No bleeding wounds. Initial Vital Signs Initial Vital Signs: Vital Signs Temperature 97.0 F L 02/11/25 12:01 Pulse Rate 91 H 02/11/25 12:01 Respiratory Rate 14 02/11/25 12:01 Blood Pressure 126/59 L 02/11/25 12:01 Pulse Oximetry 96 02/11/25 12:01 Oxygen Delivery Method Room Air 02/11/25 12:01 <Jenny Mejias DO - Last Filed: 02/13/25 18:42> Initial Vital Signs Initial Vital Signs: Vital Signs Temperature 97.0 F L 02/11/25 12:01 Pulse Rate 91 H 02/11/25 12:01 Respiratory Rate 14 02/11/25 12:01 Blood Pressure 126/59 L 02/11/25 12:01 Pulse Oximetry 96 02/11/25 12:01 Oxygen Delivery Method Room Air 02/11/25 12:01 Course <Ameena Carrero PA-C - Last Filed: 02/11/25 19:41> Orders Ordered: Discontinued Medications Sodium Chloride (Normal Saline 0.9%) 1,000 mls @ 1,000 mls/hr IV BOLUS ONE Stop: 02/11/25 13:56 Last Infusion: 02/11/25 14:23 Dose: Infused Documented By: Admin: 02/11/25 13:15 Dose: 1,000 mls/hr Documented By: LEON Trimethoprim/Sulfamethoxazole (Trimeth/Sulfa 160/800 (Ds) Tablet) 1 tab PO NOW ONE Stop: 02/11/25 14:51 Last Admin: 02/11/25 14:54 Dose: 1 tab Documented By: CLARIBEL Vital Signs Vital signs: Vital Signs - 8 hr 02/11/25 12:01 02/11/25 12:13 02/11/25 12:14 Temperature 97.0 F L Pulse Rate 91 H 90 87 Respiratory Rate 14 21 16 Blood Pressure 126/59 L Pulse Oximetry 96 96 97 Oxygen Delivery Method Room Air 02/11/25 12:14 02/11/25 12:30 02/11/25 12:31 Temperature Pulse Rate 82 84 Respiratory Rate 15 15 Blood Pressure 138/69 Pulse Oximetry 96 96 Oxygen Delivery Method 02/11/25 12:31 02/11/25 13:02 02/11/25 13:17 Temperature Pulse Rate 84 Respiratory Rate Blood Pressure 128/60 144/65 H Pulse Oximetry 95 Oxygen Delivery Method 02/11/25 13:17 02/11/25 13:30 02/11/25 13:30 Temperature Pulse Rate 82 80 Respiratory Rate 18 14 Blood Pressure 129/60 Pulse Oximetry 94 93 Oxygen Delivery Method 02/11/25 14:00 02/11/25 14:00 02/11/25 14:30 Temperature Pulse Rate 82 89 Respiratory Rate 13 14 Blood Pressure 150/68 H Pulse Oximetry 93 96 Oxygen Delivery Method 02/11/25 14:30 Temperature 97.7 F Pulse Rate Respiratory Rate Blood Pressure 152/74 H Pulse Oximetry Oxygen Delivery Method <Jenny Mejias DO - Last Filed: 02/13/25 18:42> Orders Ordered: Discontinued Medications Sodium Chloride (Normal Saline 0.9%) 1,000 mls @ 1,000 mls/hr IV BOLUS ONE Stop: 02/11/25 13:56 Last Infusion: 02/11/25 14:23 Dose: Infused Documented By: Admin: 02/11/25 13:15 Dose: 1,000 mls/hr Documented By: LEON Trimethoprim/Sulfamethoxazole (Trimeth/Sulfa 160/800 (Ds) Tablet) 1 tab PO NOW ONE Stop: 02/11/25 14:51 Last Admin: 02/11/25 14:54 Dose: 1 tab Documented By: CLARIBEL Vital Signs Vital signs: Vital Signs - 8 hr 02/11/25 12:01 02/11/25 12:13 02/11/25 12:14 Temperature 97.0 F L Pulse Rate 91 H 90 87 Respiratory Rate 14 21 16 Blood Pressure 126/59 L Pulse Oximetry 96 96 97 Oxygen Delivery Method Room Air 02/11/25 12:14 02/11/25 12:30 02/11/25 12:31 Temperature Pulse Rate 82 84 Respiratory Rate 15 15 Blood Pressure 138/69 Pulse Oximetry 96 96 Oxygen Delivery Method 02/11/25 12:31 02/11/25 13:02 02/11/25 13:17 Temperature Pulse Rate 84 Respiratory Rate Blood Pressure 128/60 144/65 H Pulse Oximetry 95 Oxygen Delivery Method 02/11/25 13:17 02/11/25 13:30 02/11/25 13:30 Temperature Pulse Rate 82 80 Respiratory Rate 18 14 Blood Pressure 129/60 Pulse Oximetry 94 93 Oxygen Delivery Method 02/11/25 14:00 02/11/25 14:00 02/11/25 14:30 Temperature Pulse Rate 82 89 Respiratory Rate 13 14 Blood Pressure 150/68 H Pulse Oximetry 93 96 Oxygen Delivery Method 02/11/25 14:30 Temperature 97.7 F Pulse Rate Respiratory Rate Blood Pressure 152/74 H Pulse Oximetry Oxygen Delivery Method MDM - Fall <Ameena Carrero PA-C - Last Filed: 02/11/25 19:41> Medical Records Attestation: I reviewed the patient's medical records. Lab Data 02/11/25 12:18 02/11/25 12:18 Labs: Lab Results 02/11/25 02/11/25 Range/Units 12:18 14:15 WBC 9.0 (4.5-11.0) X10^3/uL RBC 4.15 L (4.5-5.9) X10^6/uL Hgb 13.7 (13.5-17.5) g/dL Hct 41.5 (41-53) % MCV 100.1 H (80-100) fL MCH 33.1 (26-34) PG MCHC 33.1 (30-36) % RDW 14.0 (11.6-14.8) % Plt Count 177 (150-400) X10^3/uL Neut % (Auto) 74.3 (50-75) % Lymph % (Auto) 13.4 L (25-40) % [place] % (Auto) 11.8 (3-14) % Eos % (Auto) 0.2 L (2-4) % Baso % (Auto) 0.3 (0-2) % Neut # (Auto) 6700 (5197-3416) /uL Lymph # (Auto) 1200 (3737-3230) /uL [place] # (Auto) 1100 H (0-900) /uL Eos # (Auto) 0 (0-450) /uL Baso # (Auto) 0 (0-100) /uL PT 10.5 (9.4-12.5) SECONDS INR 0.9 (0.9-1.3) APTT 31 (25.1-36.5) SECONDS Sodium 136 L (137-145) mmol/L Potassium 4.8 (3.4-5.1) mmol/L Chloride 106 (98-107) mmol/L Carbon Dioxide 20 L (22-32) mmol/L BUN 23 H (9-20) mg/dL Creatinine 1.03 (0.66-1.25) mg/dL Estimated GFR > 60 (>60) mL/min BUN/Creatinine Ratio 22.3 H (6-22) Glucose 316 H (70-99) mg/dL Calcium 9.1 (8.4-10.2) mg/dL Total Bilirubin 1.2 (0.2-1.3) mg/dL AST 27 (17-59) IU/L ALT 17 (<50) IU/L Alkaline Phosphatase 82 (38-126) U/L Total Creatine Kinase 77 (55-170) U/L Troponin I 0.014 (0.01-0.034) ng/mL Total Protein 7.3 (6.3-8.2) g/dL Albumin 4.0 (3.5-5.0) g/dL Globulin 3.3 (1.7-4.1) g/dL Albumin/Globulin Ratio 1.2 (1.0-2.8) Lipase 55 (23-300) U/L Urine RBC None seen (0-5/HPF) Urine WBC 5-10/hpf H (0-5/HPF) Ur Squamous Epith Cells None seen (0-5/HPF) Urine Bacteria Many (>30) H (None) Ur Culture Indicated? Specimen cultured Vol Urine Centrifuged 10ml (spun) Urine Dip Bedside Urine Glucose 1000 mg/dl Bedside Urine Bilirubin - Negative Bedside Urine Ketone +/- 5 Urine Specific [place] 1.010 Bedside Urine Occult Blood +/- Bedside Urine pH 6.0 Bedside Urine Protein - Negative Bedside Urine Urobilinogen - Negative Bedside Urine Nitrite + Positive Bedside Urine Leukocytes - Negative Esterase Imaging Data CT scan - head: Radiologist's Impression: INDICATIONS: fall syncope days ago TECHNIQUE: Noncontrast 4.5 mm thick angled axial sections acquired from the foramen magnum to the vertex, with coronal and sagittal reformats. For radiation dose reduction, the following was used: automated exposure control, adjustment of mA and/or kV according to patient size. COMPARISON: [facility], CT, CT HEAD/BRAIN WO CON, 05/15/2024, 16:04. FINDINGS: Image quality: Diagnostic. CSF spaces: Basal cisterns are patent. No extra-axial fluid collections. The ventricles are symmetric in size and shape. Brain: No intracranial bleeds or mass effect. There is cerebral volume loss, with resultant ventricular and sulcal prominence. There are periventricular and deep white matter chronic small vessel ischemic changes. 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 There is intracranial internal carotid artery atherosclerosis. Skull and face: Calvarium and visualized facial bones appear intact, without suspicious lesions. Sinuses: Visualized sinuses and mastoids are clear. IMPRESSION: No acute intracranial pathology. Dictated by: Mlechor Ny M.D. on 02/11/2025 at 13:32 Approved by: Melchor Ny M.D. on 02/11/2025 at 13:34 CT - cervical spine: Radiologist's Impression: PROCEDURE: CT CERVICAL SPINE WO CON INDICATIONS: fall syncope 5 days ago TECHNIQUE: Noncontrast 3 mm thick sections acquired from the skull base to the T4 level. Sagittal and coronal reformats were then constructed. For radiation dose reduction, the following was used: automated exposure control, adjustment of mA and/or kV according to patient size. COMPARISON: [facility], CT, CT CERVICAL SPINE WO CON, 05/15/2024, 16:04. FINDINGS: Image quality: Excellent. Bones: No fractures or dislocations. Visualized superior ribs are intact. Severe cervical spondylosis. Findings include multilevel canal stenosis and foraminal stenosis. Soft tissues: Prevertebral soft tissues are normal in thickness. No paravertebral hematomas. No apical pneumothoraces. IMPRESSION: No displaced fracture or traumatic subluxation. Severe cervical spondylosis with multilevel canal stenosis and foraminal stenosis. Dictated by: Melchor Ny M.D. on 02/11/2025 at 13:35 Approved by: Melchor Ny M.D. on 02/11/2025 at 13:36 CT scan - chest/abdomen/pelvis: Radiologist's Impression: ADDENDUMThis report includes an Addendum and supersedes previous reports for this exam. PROCEDURE: CT CHEST ABD PEL W CON INDICATIONS: fall syncope 5 days ago chest wall diffuse ecchymosis TECHNIQUE: After the administration of intravenous contrast, 5 mm thick sections acquired from the lung apices to the symphysis. 2.5 mm thick coronal and sagittal reformats were acquired. Additional 7 mm thick coronal maximum intensity projection (MIP) reformats acquired through the lungs. Optional 10-minute delayed imaging may be performed from the kidneys to the bladder. For radiation dose reduction, the following was used: automated exposure control, adjustment of mA and/or kV according to patient size. COMPARISON: None. FINDINGS: Image quality: Diagnostic. CHEST: Lower Neck: No enlarged lymph nodes. Thyroid: No thyroid nodules which require sonographic evaluation. Axillae: No enlarged lymph nodes. Chest Wall: No subcutaneous gas. Lungs and Pleura: No pulmonary contusions or lacerations. No acute airspace opacities. No pneumothorax or hemothorax. Advanced centrilobular emphysema is seen. Interlobular septal thickening throughout periphery of bilateral lung banegas are noted consistent with pulmonary fibrosis. Mediastinum: No mediastinal hematomas. Heart size is enlarged. No pericardial effusion. Thoracic aorta and pulmonary arteries demonstrate normal size and enhancement. 3 vessel coronary artery atherosclerotic calcifications are seen. No mediastinal or hilar adenopathy. Esophagus is normal in caliber. Small hiatal hernia. ABDOMEN: Liver: No lacerations. Moderate hepatic steatosis is seen. Gallbladder: Not visualized. Biliary ducts: No biliary dilation. Pancreas: Homogenous enhancement. Spleen: Homogenous enhancement without laceration or hematoma. Adrenal Glands: Symmetric enhancement. Kidneys and Ureters: Symmetric enhancement. No hydronephrosis. No solid mass. No complex renal cystic lesion which requires follow up. Stomach and Bowel: Normal colonic caliber, without significant wall thickening. Moderate fecal stasis in the colon is seen. No abscess collection. Peritoneum: No abnormal intraperitoneal fluid. No free air. Ventral Wall: No hernia. Abdominal Nodes: No retroperitoneal or mesenteric adenopathy by size criteria. Vessels: Aorta and inferior vena cava are normal in size. Moderate atherosclerotic calcifications in abdominal aorta is seen. PELVIS: Pelvic Organs: Unremarkable. Bladder: Normal thickness. Pelvic Nodes: No enlarged lymph nodes. Miscellaneous: Small left inguinal hernia containing fat only. Bones: Pelvic ring and hip joints appear intact. No displaced rib fractures. Spondylitic changes throughout thoracic and lumbar spine is seen. No acute vertebral body compression fracture. IMPRESSION: 1. No evidence of traumatic injury to the chest, abdomen or pelvis. 2. Advanced centrilobular emphysema and pulmonary fibrosis. No focal infiltrate, pleural effusion or pneumothorax. 3. Cardiomegaly, no pericardial effusion. Moderate to severe 3 vessel coronary artery atherosclerotic calcifications. No mediastinal or hilar lymphadenopathy. 4. No acute inflammatory process is seen in abdomen or pelvis. 5. Other incidental findings as above. Dictated by: Wisam Barber M.D. on 02/11/2025 at 13:43 Approved by: Wisam Barber M.D. on 02/11/2025 at 13:51 ADDENDUM: Upon further inspection, there is a nondisplaced fracture involving medial right clavicular head adjacent to sternal clavicular joint. Dictated by: Wisam Barber M.D. on 02/11/2025 at 14:39 Approved by: Wisam Barber M.D. on 02/11/2025 at 14:40 Addendum Dictated By: Wisam Barber MD Addendum Signed By: 02/11/251439 Addendum Cosigned By: DD/ /07/1439 TD/TT: 02/11/2510/07/1439 PROCEDURE: CT CHEST ABD PEL W CON INDICATIONS: fall syncope 5 days ago chest wall diffuse ecchymosis TECHNIQUE: After the administration of intravenous contrast, 5 mm thick sections acquired from the lung apices to the symphysis. 2.5 mm thick coronal and sagittal reformats were acquired. Additional 7 mm thick coronal maximum intensity projection (MIP) reformats acquired through the lungs. Optional 10-minute delayed imaging may be performed from the kidneys to the bladder. For radiation dose reduction, the following was used: automated exposure control, adjustment of mA and/or kV according to patient size. COMPARISON: None. FINDINGS: Image quality: Diagnostic. CHEST: Lower Neck: No enlarged lymph nodes. Thyroid: No thyroid nodules which require sonographic evaluation. Axillae: No enlarged lymph nodes. Chest Wall: No subcutaneous gas. Lungs and Pleura: No pulmonary contusions or lacerations. No acute airspace opacities. No pneumothorax or hemothorax. Advanced centrilobular emphysema is seen. Interlobular septal thickening throughout periphery of bilateral lung banegas are noted consistent with pulmonary fibrosis. Mediastinum: No mediastinal hematomas. Heart size is enlarged. No pericardial effusion. Thoracic aorta and pulmonary arteries demonstrate normal size and enhancement. 3 vessel coronary artery atherosclerotic calcifications are seen. No mediastinal or hilar adenopathy. Esophagus is normal in caliber. Small hiatal hernia. ABDOMEN: Liver: No lacerations. Moderate hepatic steatosis is seen. Gallbladder: Not visualized. Biliary ducts: No biliary dilation. Pancreas: Homogenous enhancement. Spleen: Homogenous enhancement without laceration or hematoma. Adrenal Glands: Symmetric enhancement. Kidneys and Ureters: Symmetric enhancement. No hydronephrosis. No solid mass. No complex renal cystic lesion which requires follow up. Stomach and Bowel: Normal colonic caliber, without significant wall thickening. Moderate fecal stasis in the colon is seen. No abscess collection. Peritoneum: No abnormal intraperitoneal fluid. No free air. Ventral Wall: No hernia. Abdominal Nodes: No retroperitoneal or mesenteric adenopathy by size criteria. Vessels: Aorta and inferior vena cava are normal in size. Moderate atherosclerotic calcifications in abdominal aorta is seen. PELVIS: Pelvic Organs: Unremarkable. Bladder: Normal thickness. Pelvic Nodes: No enlarged lymph nodes. Miscellaneous: Small left inguinal hernia containing fat only. Bones: Pelvic ring and hip joints appear intact. No displaced rib fractures. Spondylitic changes throughout thoracic and lumbar spine is seen. No acute vertebral body compression fracture. IMPRESSION: 1. No evidence of traumatic injury to the chest, abdomen or pelvis. 2. Advanced centrilobular emphysema and pulmonary fibrosis. No focal infiltrate, pleural effusion or pneumothorax. 3. Cardiomegaly, no pericardial effusion. Moderate to severe 3 vessel coronary artery atherosclerotic calcifications. No mediastinal or hilar lymphadenopathy. 4. No acute inflammatory process is seen in abdomen or pelvis. 5. Other incidental findings as above. Dictated by: Wisam Barber M.D. on 02/11/2025 at 13:43 Approved by: Wisam Barber M.D. on 02/11/2025 at 13:51 ECG Data Interpretation: ECG compared to prior on 05/28/2023. Patient has a regular rate of 83 beats per minute and a regular rhythm. First-degree AV block and left axis deviation similar to prior ECGs. MDM Narrative Medical decision making narrative: 85-year-old male with a past medical history of insulin-dependent type 2 diabetes, HTN, chronic back pain on pain management who presents to the emergency department for concern of right clavicle fracture after a syncopal episode that occurred 5 days ago. He is not on anticoagulation. Differential diagnosis includes but is not limited to right clavicle fracture, right shoulder fracture, right shoulder dislocation, syncope, rib fracture, sternal fracture, pneumothorax, ICH, dehydration, hypoglycemia, hyperglycemia, etc. On exam the patient is in no acute distress, nontoxic appearing, vital signs within normal limits. He has impressive ecchymosis of the anterior chest wall and tenderness of right clavicle, unable to abduct her right shoulder. No focal neurologic deficits, no headache or neck pain. Pain is controlled with his current home regimen. Denies chest pain or difficulty breathing. Given significant trauma and history of syncopal episode, we will obtain cardiac lab work, CT scan head, cervical spine, chest abdomen pelvis including x-ray of the chest and right shoulder. Labs reveal normal WBC count 9.0. Normal hemoglobin 13.7 hematocrit 41.5. Sodium 136 however corrected for glucose is 142. Normal potassium 4.8. BUN 23 creatinine 1.03. Glucose is elevated at 316, patient is insulin-dependent diabetic, states that his sugars have been pretty good at home, he uses 11 units of insulin daily. Normal LFTs. Troponin is 0.014. Normal LFTs and lipase. Will treat with 1L IVF. Patient's CT head reveals no acute intracranial pathology, there are chronic changes in addition to old focal lacunar infarctions. CT cervical spine reveals no displaced fracture or traumatic subluxation, there is severe cervical spondylosis. CT chest abdomen and pelvis reveals a nondisplaced fracture involving the medial right clavicular head adjacent to the sternoclavicular joint. Patient also has chronic findings therefore the imaging results were printed and provided to the patient and his and discussed in detail. Shoulder x-ray reveals arthritis without fracture. Urinalysis is nitrite positive, with many bacteria and urine WBCs. Patient remained comfortable throughout his ED stay with no chest pain, shortness of breath, dizziness, lightheadedness. He is able to stand and ambulate independently. His right arm was placed into a sling for his clavicular fracture. I discussed admission with the patient and his due to his syncopal episode however he is requesting discharge home and states that he feels well and does not wish to be admitted. We did discuss strict ED return precautions which both him and his verbalized understanding. This time I recommend he complete a course of Bactrim for his UTI, continue wearing the sling for his clavicular fracture and follow up with Orthopedics for further management in addition to following up with his primary care doctor. Patient his verbalized understanding of all information and are agreeable to the plan and he is stable for discharge home. <Jenny Mejias, - Last Filed: 02/13/25 18:42> Lab Data Labs: Lab Results 02/11/25 02/11/25 Range/Units 12:18 14:15 WBC 9.0 (4.5-11.0) X10^3/uL RBC 4.15 L (4.5-5.9) X10^6/uL Hgb 13.7 (13.5-17.5) g/dL Hct 41.5 (41-53) % MCV 100.1 H (80-100) fL MCH 33.1 (26-34) PG MCHC 33.1 (30-36) % RDW 14.0 (11.6-14.8) % Plt Count 177 (150-400) X10^3/uL Neut % (Auto) 74.3 (50-75) % Lymph % (Auto) 13.4 L (25-40) % [place] % (Auto) 11.8 (3-14) % Eos % (Auto) 0.2 L (2-4) % Baso % (Auto) 0.3 (0-2) % Neut # (Auto) 6700 (9604-3786) /uL Lymph # (Auto) 1200 (8257-8280) /uL [place] # (Auto) 1100 H (0-900) /uL Eos # (Auto) 0 (0-450) /uL Baso # (Auto) 0 (0-100) /uL PT 10.5 (9.4-12.5) SECONDS INR 0.9 (0.9-1.3) APTT 31 (25.1-36.5) SECONDS Sodium 136 L (137-145) mmol/L Potassium 4.8 (3.4-5.1) mmol/L Chloride 106 (98-107) mmol/L Carbon Dioxide 20 L (22-32) mmol/L BUN 23 H (9-20) mg/dL Creatinine 1.03 (0.66-1.25) mg/dL Estimated GFR > 60 (>60) mL/min BUN/Creatinine Ratio 22.3 H (6-22) Glucose 316 H (70-99) mg/dL Calcium 9.1 (8.4-10.2) mg/dL Total Bilirubin 1.2 (0.2-1.3) mg/dL AST 27 (17-59) IU/L ALT 17 (<50) IU/L Alkaline Phosphatase 82 (38-126) U/L Total Creatine Kinase 77 (55-170) U/L Troponin I 0.014 (0.01-0.034) ng/mL Total Protein 7.3 (6.3-8.2) g/dL Albumin 4.0 (3.5-5.0) g/dL Globulin 3.3 (1.7-4.1) g/dL Albumin/Globulin Ratio 1.2 (1.0-2.8) Lipase 55 (23-300) U/L Urine RBC None seen (0-5/HPF) Urine WBC 5-10/hpf H (0-5/HPF) Ur Squamous Epith Cells None seen (0-5/HPF) Urine Bacteria Many (>30) H (None) Ur Culture Indicated? Specimen cultured Vol Urine Centrifuged 10ml (spun) Urine Dip Bedside Urine Glucose 1000 mg/dl Bedside Urine Bilirubin - Negative Bedside Urine Ketone +/- 5 Urine Specific [place] 1.010 Bedside Urine Occult Blood +/- Bedside Urine pH 6.0 Bedside Urine Protein - Negative Bedside Urine Urobilinogen - Negative Bedside Urine Nitrite + Positive Bedside Urine Leukocytes - Negative Esterase Discharge Plan Departure Patient Disposition: Home Clinical Impression: Acute UTI, Pulmonary fibrosis Closed fracture of right clavicle Qualifiers: Encounter type: initial encounter Clavicle location: sternal end Fracture alignment: nondisplaced Qualified Code(s): S42.017A - Nondisplaced fracture of sternal end of right clavicle, initial encounter for closed fracture Syncope Qualifiers: Syncope type: unspecified Qualified Code(s): R55 - Syncope and collapse Instructions: DI for Clavicle Fracture-Adult, DI for Urinary Tract Infection (UTI) Activity Restrictions/Additional Instructions: Dear Mr. Bemran, Thank you for coming to the emergency department. Today you were evaluated for injury sustained after fall. You fractured the medial side of your right collarbone. Please continue wearing a sling to allow this fracture to heal, and follow up with [facility] for further management. Your workup today did not reveal any other injuries however it did reveal a urinary tract infection, antibiotics has been sent to [facility] in [place]. Please complete the full course of antibiotics. As we discussed, your imaging today did also reveal numerous chronic findings such as right shoulder arthritis, pulmonary fibrosis and advanced emphysema of the lungs, enlargement of the heart, and coronary artery atherosclerotic calcifications. It is very important to follow up with your primary care doctor for further management of all these chronic conditions. Please return to the emergency department if you develop any new or worsening symptoms, chest pain, shortness of breath, recurrent syncopal episodes or other abnormalities. Please follow up with your primary care doctor within the next 2-3 days for ER follow-up. (If you do not have a PCP you can call [phone]. ?to schedule an appointment with an [facility] Primary Care Provider) IF YOU DEVELOP ANY NEW OR WORSENING SYMPTOMS, RETURN TO THE ER! Please read the attached instructions, they highlight more specific treatments and interventions for you at home. Thank you for letting me participate in your care, SEB ChenC Prescriptions: New sulfamethoxazole-trimethoprim [Bactrim DS] 800-160 mg tablet 1 tab PO BID 7 Days Qty: 14 0RF No Action INSULIN HUMAN 70/30 10ML (Humulin 70-30 Vial) 0 units SQ * UK DOSE/FREQUENCY Qty: 0 Fluoxetine Hydrochloride (Prozac) 40 mg PO Qty: 0 CALCIUM CARBONATE/VITAMIN D3 (Oyster Shell Calcium-Vit D Tab) 250 mg PO BID Qty: 0 FUROSEMIDE (Lasix) 20 mg PO Qty: 0 LISINOPRIL (Zestril / Prinivil) 20 mg PO Q DAY Qty: 0 omeprazole 20 MG capsule,delayed release(DR/EC) 20 mg PO QDAY Qty: 0 lidocaine 4 % adhesive patch,medicated 1 patch topical BID PRN (Reason: pain) Qty: 30 0RF Rx Instructions: may leave on for up to 12 hrs mupirocin 2 % ointment 1 applic topical TID Qty: 50 1RF doxycycline hyclate 100 mg tablet 100 mg PO BID Qty: 20 0RF oxycodone-acetaminophen 5-325 mg tablet 1 tab PO 3XD PRN ibuprofen 200 mg capsule 200 mg PO Q6H PRN levetiracetam [Keppra] 500 mg tablet 500 mg PO BID Qty: 60 1RF Referrals: Esvin Briones MD [Primary Care Provider, Medical] Stand Alone Forms: Patient Portal/API ED Sign-out <Jenny Mejias, - Last Filed: 02/13/25 18:42> Cosign ED Attending Cosyanature Attestation: I was immediately available in the department for consultation. Case reviewed images reviewed, agree chemical does look fractured was reviewed with radiologist by PA who agrees with findings.
[2025-02-11 12:49] LABS: INR 0.9 (0.9-1.3); Prothrombin Time 10.5 SECONDS (9.4-12.5)
[2025-02-11 12:52] LABS: PTT Partial Thromboplastin Tim 31 SECONDS (25.1-36.5)
[2025-02-11 12:53] LABS: Alanine Aminotransferase 17 IU/L (<50); Albumin 4.0 g/dL (3.5-5.0); Albumin Globulin Ratio 1.2 (1.0-2.8); Alkaline Phosphatase 82 U/L (38-126); Blood Urea Nitrogen 23 mg/dL (9-20); Calcium 9.1 mg/dL (8.4-10.2); Carbon Dioxide 20 mmol/L (22-32); Chloride 106 mmol/L (98-107); Creatine Kinase 77 U/L (55-170); Estimated Glomerular Filt Rate > 60 mL/min (>60); Globulin 3.3 g/dL (1.7-4.1); Glucose 316 mg/dL (70-99); HEMOLYSIS 31 (0-50); Lipase 55 U/L (23-300); Potassium 4.8 mmol/L (3.4-5.1); Sodium 136 mmol/L (137-145); Total Protein 7.3 g/dL (6.3-8.2)
[2025-02-11 13:04] LABS: Add Manual Diff / Slide Review NO; Hematocrit 41.5 % (41-53); Hemoglobin 13.7 g/dL (13.5-17.5); Lymphocytes Absolute Auto 1200 /uL (1100-4500); Mean Corpuscular HGB Conc 33.1 % (30-36); Mean Corpuscular Hemoglobin 33.1 PG (26-34); Mean Corpuscular Volume 100.1 fL (80-100); Platelet Count 177 X10^3/uL (150-400)
[2025-02-11 13:05] LABS: Troponin I 0.014 ng/mL (0.01-0.034)
[2025-02-11] MEDS: SODIUM CHLORIDE 0.9% 1,000 ML 1000 ML IV (13:15)
[2025-02-11 14:34] LABS: Culture Indicated Urine Specimen Cultured
[2025-02-11] MEDS: TRIMETH/SULFA 160/800 (DS) TABLET 1 TAB PO (14:54)
== END 2025-02-11 15:02 | disposition home or self-care (01) ==
PROVIDERS: Emergency Provider Physician Assistant; Family Provider Internal Medicine; PCP Internal Medicine
DX: S42.017A Nondisplaced fracture of sternal end of right clavicle, initial encounter for closed fracture (principal); R55 Syncope and collapse; N39.0 Urinary tract infection, site not specified; J84.10 Pulmonary fibrosis, unspecified; I10 Essential (primary) hypertension; I44.0 Atrioventricular block, first degree; W18.30XA Fall on same level, unspecified, initial encounter; Z87.891 Personal history of nicotine dependence
CPT/HCPCS: 36415; 70450; 71045; 71260; 72125; 73030; 74177; 80053; 81003; 81015; 82550; 83690; 84484; 85025; 85610; 85730; 87077; 87086; 87186; 93005; 93010; 96360; 99284; Q9967

== ENCOUNTER 2025-03-23 14:16 | Emergency (ER) | payer MEDICARE, SELFPAY ==
[2025-03-23 14:19] VITALS: BP 147/77; PULSE 105; RESP 20; TEMP 36.5; O2SAT 98; BMI 23.0
--- NOTE | 2025-03-23 15:56 | ED_ITS ---
<Statement entered by Sergio Guzman, DO - 03/24/25 17:43> Co-sign statement: I was available for consultation during this patient's emergency department visit. This chart is being signed by myself for administrative purposes only. I do not have direct contact with this patient during this visit. They were seen independently by the APC. HPI - Abdominal Pain General Chief Complaint: Abdominal Pain Stated Complaint: possible hernia Time Seen by Provider: 03/23/25 14:22 Source: patient Mode of arrival: Ambulatory History of Present Illness HPI narrative: 85-year-old male with past medical history insulin-dependent type 2 diabetes, hypertension presents to the ED with 2 days of left groin swelling. Patient states that while he is unsure of how long the lump has been there, he has been feeling it only since yesterday. Patient endorses feeling the lump, however denies pain. No fever, chills, chest pain, shortness of breath, abdominal pain, nausea, vomiting, dysuria, lightheadedness, dizziness, syncope. Denies testicular/scrotal pain. Related Data Home Medications ?Medication ?Instructions ?Recorded ?Confirmed CALCIUM CARBONATE/VITAMIN D3 250 mg PO BID ##0 8 02/25/24 (Oyster Shell Calcium-Vit D Tab) FUROSEMIDE (Lasix) 20 mg PO ##0 07/30/08 Fluoxetine Hydrochloride (Prozac) 40 mg PO ##0 8 02/25/24 INSULIN HUMAN 70/30 10ML (Humulin 0 units SQ * UK DOSE /FREQUENCY ##0 07/30/08 02/25/24 70-30 Vial) LISINOPRIL (Zestril / Prinivil) 20 mg PO Q DAY ##0 05/2102/25/24 omeprazole 20 mg capsule,delayed 20 mg PO QDAY ##0 05/2502/25/24 release ibuprofen 200 mg capsule 200 mg PO Q6H PRN 02/25/24 0 02/25/24 oxycodone-acetaminophen 5 mg-325 1 tab PO 3XD PRN 02/1002/25/24 mg tablet Previous Rx's ?Medication ?Instructions ?Recorded lidocaine 4 % topical patch 1 patch topical BID PRN pa in #30 ea 12/07/23 levetiracetam 500 mg tablet 500 mg PO BID #60 tabs (Keppra) doxycycline hyclate 100 mg tablet 100 mg PO BID #20 ta bs 05/15/24 mupirocin 2 % topical ointment 1 applic topical TID #5 0 grams 05/15/24 Allergies Allergy/AdvReac Type Severity Reaction Status Date / Time carvedilol (CARVEDILOL) Allergy Unknown Verified 03/23/25 14:19 metformin (METFORMIN) Allergy Unknown Verified 03/23/25 14:19 Review of Systems Constitutional Constitutional: Denies chills, Denies fatigue, Denies fever(s), Denies frequent falls, Denies lethargy and Denies weakness Eyes Eyes: Denies change in vision, Denies eye discharge, Denies irritation and Denies loss of vision ENT Ears, Nose, Mouth, and Throat: Denies change in voice, Denies dizziness, Denies neck pain, Denies sore throat and Denies throat swelling Cardiovascular Cardiovascular: Denies chest pain, Denies irregular heart rhythm, Denies lightheadedness, Denies palpitations, Denies dyspnea, Denies dyspnea on exertion and Denies orthopnea Respiratory Respiratory: Denies cough, Denies dyspnea, Denies dyspnea on exertion and Denies wheezing Gastrointestinal Gastrointestinal: Denies abdominal pain, Denies change in bowel habits, Denies diarrhea, Denies nausea and Denies vomiting Comments: Left groin lump Musculoskeletal Musculoskeletal: Denies neck pain and Denies numbness Integumentary/Breasts Skin/Breast: Denies pruritus, Denies erythema, Denies rash and Denies wounds Neurologic Neurologic: Denies behavioral changes, Denies confusion, Denies dizziness, Denies frequent falls, Denies loss of vision, Denies numbness and Denies weakness Psychiatric Psychiatric: Denies anxiety, Denies behavioral changes, Denies confusion, Denies depression, Denies homicidal ideation and Denies suicidal ideation Endocrine Endocrine: Denies fatigue, Denies flushing and Denies palpitations Hematologic/Lymphatic Hematologic/Lymphatic: Denies easy bruising Allergic/Immunologic Allergic/Immunologic: Denies urticaria, Denies throat swelling and Denies wheezing Patient History Medical History Compression fracture of L5 vertebra Lumbar stenosis with neurogenic claudication Facet arthropathy, lumbar Scoliosis Surgical History History of prostate surgery Family History Father History of heart attack Family/Other Diabetes mellitus Social History Smoking Status: Never smoker Smoking Status: Never smoker alcohol intake frequency: 0-2 drinks per day Alcohol type: hard liquor Exam Narrative Exam Narrative: Const General:?cooperative, healthy appearing and comfortable [facility] Head:?normal to inspection Ears:?hearing grossly normal bilaterally Nose:?external nose normal Face and sinus:?normal facial exam and sinuses nontender Mouth:?oral mucosae normal Throat:?posterior oropharynx normal Eyes General:?appearance normal, both eyes and all related structures Neck Neck:?normal visual inspection and no lymphadenopathy noted Resp Effort & Inspection:?normal respiratory effort Auscultation:?clear to auscultation bilaterally Cardio Rate:?regular rate Rhythm:?regular rhythm GI Abdomen is soft, nondistended, nontender to palpation. There is a small lump palpable in the left groin, not tender to palpation. Neuro General:?patient alert, patient awake and patient oriented x3 Initial Vital Signs Initial Vital Signs: Vital Signs Temperature 97.7 F 03/23/25 14:19 Pulse Rate 105 H 03/23/25 14:19 Respiratory Rate 20 03/23/25 14:19 Blood Pressure 147/77 H 03/23/25 14:19 Pulse Oximetry 98 03/23/25 14:19 Oxygen Delivery Method Room Air 03/23/25 14:19 Course Vital Signs Vital signs: Vital Signs - 8 hr 03/23/25 14:19 Temperature 97.7 F Pulse Rate 105 H Respiratory Rate 20 Blood Pressure 147/77 H Pulse Oximetry 98 Oxygen Delivery Method Room Air MDM - Abdominal Pain Lab Data 03/23/25 16:45 03/23/25 16:45 Labs: Lab Results 03/23/25 Range/Units 16:45 WBC 6.4 (4.5-11.0) X10^3/uL RBC 4.46 L (4.5-5.9) X10^6/uL Hgb 14.4 (13.5-17.5) g/dL Hct 43.3 (41-53) % MCV 97.1 (80-100) fL MCH 32.4 (26-34) PG MCHC 33.4 (30-36) % RDW 13.0 (11.6-14.8) % Plt Count 411 H (150-400) X10^3/uL Neut % (Auto) 62.8 (50-75) % Lymph % (Auto) 25.4 (25-40) % [place] % (Auto) 10.3 (3-14) % Eos % (Auto) 0.4 L (2-4) % Baso % (Auto) 1.1 (0-2) % Neut # (Auto) 4000 (0588-6591) /uL Lymph # (Auto) 1600 (0077-7146) /uL [place] # (Auto) 700 (0-900) /uL Eos # (Auto) 0 (0-450) /uL Baso # (Auto) 100 (0-100) /uL Sodium 137 (137-145) mmol/L Potassium 4.7 (3.4-5.1) mmol/L Chloride 103 (98-107) mmol/L Carbon Dioxide 25 (22-32) mmol/L BUN 21 H (9-20) mg/dL Creatinine 1.06 (0.66-1.25) mg/dL Estimated GFR > 60 (>60) mL/min BUN/Creatinine Ratio 19.8 (6-22) Glucose 181 H (70-99) mg/dL Calcium 9.2 (8.4-10.2) mg/dL Total Bilirubin 0.6 (0.2-1.3) mg/dL AST 36 (17-59) IU/L ALT 16 (<50) IU/L Alkaline Phosphatase 95 (38-126) U/L Total Protein 7.8 (6.3-8.2) g/dL Albumin 4.2 (3.5-5.0) g/dL Globulin 3.6 (1.7-4.1) g/dL Albumin/Globulin Ratio 1.2 (1.0-2.8) Lipase 131 (23-300) U/L MDM Narrative Medical decision making narrative: 85-year-old male with past medical history insulin-dependent type 2 diabetes, hypertension presents to the ED with 2 days of left groin swelling. Concern for hernia versus other intra-abdominal pathology versus other. Will obtain labs, CT abdomen pelvis. Will Re assess. Labs within normal limits. CT abdomen pelvis shows a small left indirect inguinal hernia containing a short segment of nonobstructed small bowel. Small right indirect inguinal hernia containing fat. Left renal mass measuring 2.9 x 1.8 cm. Macro lobulated liver contour concerning for cirrhosis. Discussed findings regarding the hernia and incidental findings with patient. Patient opts for watchful waiting, follow-up with PCP/surgery if symptoms worsen. ED return precautions were discussed with patient. Patient verbalized understanding. Medical records reviewed: Yes Discharge Plan Departure Patient Disposition: Home Clinical Impression: Inguinal hernia Qualifiers: Obstruction and gangrene presence: without obstruction or gangrene Laterality: bilateral Recurrence: not specified as recurrent Qualified Code(s): K40.20 - Bilateral inguinal hernia, without obstruction or gangrene, not specified as recurrent Instructions: Groin Hernia -- Adult Activity Restrictions/Additional Instructions: You were evaluated in the emergency department today for a groin lump. You have hernias on both sides in the groin. However, they are not strangulated or incarcerated. It is also reassuring to note that you are asymptomatic. Please follow-up with your primary care doctor and a surgeon for further evaluation and treatment. Return to the ED if you have worsening symptoms, abdominal pain. Prescriptions: No Action INSULIN HUMAN 70/30 10ML (Humulin 70-30 Vial) 0 units SQ * [place] DOSE/FREQUENCY Qty: 0 Fluoxetine Hydrochloride (Prozac) 40 mg PO Qty: 0 CALCIUM CARBONATE/VITAMIN D3 (Oyster Shell Calcium-Vit D Tab) 250 mg PO BID Qty: 0 FUROSEMIDE (Lasix) 20 mg PO Qty: 0 LISINOPRIL (Zestril / Prinivil) 20 mg PO Q DAY Qty: 0 omeprazole 20 MG capsule,delayed release(DR/EC) 20 mg PO QDAY Qty: 0 lidocaine 4 % adhesive patch,medicated 1 patch topical BID PRN (Reason: pain) Qty: 30 0RF Rx Instructions: may leave on for up to 12 hrs mupirocin 2 % ointment 1 applic topical TID Qty: 50 1RF doxycycline hyclate 100 mg tablet 100 mg PO BID Qty: 20 0RF oxycodone-acetaminophen 5-325 mg tablet 1 tab PO 3XD PRN ibuprofen 200 mg capsule 200 mg PO Q6H PRN levetiracetam [Keppra] 500 mg tablet 500 mg PO BID Qty: 60 1RF Referrals: Esvin Briones MD [Primary Care Provider, Medical] Stand Alone Forms: Patient Portal/API
--- NOTE | 2025-03-23 16:35 | DI.CT.S_ITS ---
PROCEDURE: CT ABDOMEN PELVIS W CON INDICATIONS: ?hernia TECHNIQUE: After the administration of intravenous contrast, axial sections acquired from the lung bases to the pubic symphysis. Coronal and sagittal reformats were performed. For radiation dose reduction, the following was used: automated exposure control, adjustment of mA and/or kV according to patient size. COMPARISON: None. FINDINGS: Image quality: Diagnostic. Lower Chest: Scarring of the lung bases, with superimposed emphysema. Cardiomegaly. ABDOMEN: Liver: Macro lobulated liver contour. Patent portal vein. Subcentimeter hypoattenuating lesion in segment 7, too small to characterize. Gallbladder: Absent. Biliary ducts: No biliary dilation. Pancreas: No ductal dilation. Spleen: Size is within normal limits. Adrenal Glands: No adrenal nodules. Kidneys and Ureters: Left renal mass measuring 2.9 x 1.8 cm, exophytic. No perirenal invasion. No hydronephrosis or nephrolithiasis. lobulation. Stomach and Bowel: Normal colonic caliber, without significant wall thickening. Colonic diverticulosis without evidence of diverticulitis. Peritoneum: No abnormal intraperitoneal fluid. No free air. Ventral Wall: No significant ventral hernia. Abdominal Nodes: No retroperitoneal or mesenteric adenopathy by size criteria. Vessels: Aorta and inferior vena cava are normal in size. PELVIS: Pelvic Organs: Unremarkable. Bladder: No bladder wall thickening, accounting for underdistention. Pelvic Nodes: No enlarged lymph nodes. Miscellaneous: Small left indirect inguinal hernia containing a short segment of nonobstructed small bowel. Small right indirect inguinal hernia containing fat. Bones: No aggressive osseous abnormality. Degenerative disc disease of the lumbar spine. Chronic compression deformity of the L4 vertebral body. IMPRESSION: Small left indirect inguinal hernia containing a short segment of nonobstructed small bowel. Small right indirect inguinal hernia containing fat. Left renal mass measuring 2.9 x 1.8 cm. Urology referral is recommended. Macro lobulated liver contour concerning for cirrhosis. Other ancillary findings as above. Dictated by: Kenny Quintana M.D. on 03/23/2025 at 18:46 Approved by: Kenny Quintana M.D. on 03/23/2025 at 18:52
[2025-03-23 17:00] LABS: Add Manual Diff / Slide Review NO; Hematocrit 43.3 % (41-53); Hemoglobin 14.4 g/dL (13.5-17.5); Lymphocytes Absolute Auto 1600 /uL (1100-4500); Mean Corpuscular HGB Conc 33.4 % (30-36); Mean Corpuscular Hemoglobin 32.4 PG (26-34); Mean Corpuscular Volume 97.1 fL (80-100); Platelet Count 411 X10^3/uL (150-400)
[2025-03-23 17:19] LABS: Alanine Aminotransferase 16 IU/L (<50); Albumin 4.2 g/dL (3.5-5.0); Albumin Globulin Ratio 1.2 (1.0-2.8); Alkaline Phosphatase 95 U/L (38-126); Blood Urea Nitrogen 21 mg/dL (9-20); Calcium 9.2 mg/dL (8.4-10.2); Carbon Dioxide 25 mmol/L (22-32); Chloride 103 mmol/L (98-107); Estimated Glomerular Filt Rate > 60 mL/min (>60); Globulin 3.6 g/dL (1.7-4.1); Glucose 181 mg/dL (70-99); HEMOLYSIS 29 (0-50); Lipase 131 U/L (23-300); Potassium 4.7 mmol/L (3.4-5.1); Sodium 137 mmol/L (137-145); Total Protein 7.8 g/dL (6.3-8.2)
[2025-03-23 19:15] VITALS: BP 155/84; PULSE 93; RESP 18; O2SAT 98
== END 2025-03-23 19:17 | disposition home or self-care (01) ==
PROVIDERS: Emergency Provider Student in an Organized Health Care Education/Training Program; Family Provider Internal Medicine; PCP Internal Medicine
DX: K40.20 Bilateral inguinal hernia, without obstruction or gangrene, not specified as recurrent (principal)
CPT/HCPCS: 36415; 74177; 80053; 83690; 85025; 99283; 99284; Q9967